=== PATIENT | male | born 1965 ===

== ENCOUNTER 2020-11-08 00:05 | Emergency (ER) | payer SELFPAY ==
[2020-11-08 04:32] VITALS: BP 134/76
[2020-11-08 05:41] LABS: Basophils % (Auto) 0.5 % (0.0-1.8); Eosinophils % (Auto) 0.6 % (0.0-4.3); Hemoglobin 14.9 gm/dl (11.8-15.2); Lymphocytes # (Auto) 2.9 K/mm3 (1.2-5.4); Lymphocytes % (Auto) 37.4 % (13.4-35.0); Mean Corpuscular HGB Conc 34 % (32-34); Mean Corpuscular Volume 99 fl (84-94); Monocytes # (Auto) 0.8 K/mm3 (0.0-0.8); Platelet Count 179 K/mm3 (140-440); Red Blood Count 4.46 M/mm3 (3.65-5.03); Red Cell Distribution Width 14.7 % (13.2-15.2)
[2020-11-08 05:56] LABS: Alanine Aminotransferase 27 units/L (7-56); Albumin 5.2 g/dL (3.9-5); BUN/Creatinine Ratio 9; Blood Urea Nitrogen 8 mg/dL (9-20); Calcium 9.6 mg/dL (8.4-10.2); Hemolysis Index 7
--- NOTE | 2020-11-08 08:23 | XRay Report ---
CHEST 2 VIEWS INDICATION / CLINICAL INFORMATION: chest palpitations. COMPARISON: None available. FINDINGS: SUPPORT DEVICES: None. HEART / MEDIASTINUM: No significant abnormality. LUNGS / PLEURA: No significant pulmonary or pleural abnormality. No pneumothorax. There is a small ca lcified granuloma in the left upper lobe. ADDITIONAL FINDINGS: No significant additional findings. IMPRESSION: 1. No acute findings. Signer Name: Joseph Robles MD Signed: 11/08/2020 8:18 AM Workstation Name: [id number]
--- NOTE | 2020-11-09 14:06 | Electrocardiograph Report ---
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
--- NOTE | 2020-11-12 22:59 | Consultation ---
DATE OF CONSULTATION: 11/08/2020 REASON FOR CONSULTATION: Advice regarding chest pain. HISTORY OF PRESENT ILLNESS: The patient is a pleasant 55-year-old gentleman who comes to the emergency room with chest pain, was at [facility] a few days ago for alcohol withdrawal, began drinking again on Friday. Denies any cold or cough-like symptoms. No fevers, chills, nausea, or vomiting. States he feels better, seen in the ICU today, initially was in AFib with RVR, is now in sinus rhythm. States he has had a [place], no history of valve issues. Currently, feels much better. States his chest pain yesterday with sharp and tight, similar with previous episodes. No leg cramping or rash. PAST MEDICAL HISTORY: Atrial fibrillation. SOCIAL HISTORY: Alcohol abuse. FAMILY HISTORY: No family history of premature heart disease. ALLERGIES: No known drug, food, or environmental allergies. INPATIENT AND OUTPATIENT MEDICATIONS: Reviewed. REVIEW OF SYSTEMS: As per HPI. PHYSICAL EXAMINATION: VITAL SIGNS: Blood pressure is 130/80. He is afebrile. Tele reveals sinus rhythm, atrial fibrillation yesterday. HEENT: Sclerae are anicteric. NECK: Supple, no masses. No JVD. CHEST: Clear to auscultation bilaterally. Good air movement. CARDIOVASCULAR: Regular rhythm, S1, S2. ABDOMEN: Soft, nontender, nondistended. Normoactive bowel sounds in 4 quadrants. No mass or bruits. EXTREMITIES: No significant edema. Good peripheral pulses. SKIN: Intact. No rashes. LABORATORY DATA: ECG reveals sinus tachycardia, heart rate of 103, nonspecific ST changes. Troponin is negative x2. Potassium is 3.4, glucose is 124. UDS is positive for benzodiazepines. Hemoglobin 13.2, hematocrit 38.4, platelets 130. IMPRESSION: In summary, the patient is a 55-year-old gentleman. 1. Alcohol withdrawal, now improved/resolved. 2. Paroxysm of atrial fibrillation with rapid ventricular response, now in sinus rhythm. 3. History of alcohol abuse. 4. Remote history of atrial fibrillation, was on Coumadin approximately 5-10 years ago. 5. Chest pain with typical and atypical features. Troponin negative x1. EKG is nonacute. At this point, the patient is clinically improved. Echocardiogram was reviewed with the patient. The patient has normal LV function with moderate mitral regurgitation. We will check a nuclear stress test in a.m., continue IV heparin. Consider changing to NOAC therapy if stress testing is unremarkable. Thank you for this consultation. We will be happy to follow along with you. TID: [id number] RECEIPT: [id number] RAFAEL/BERNADETTE
== END 2020-11-08 08:04 ==
LOC: ED 00:05
DX: R07.89 Other chest pain (principal); Z53.21 Procedure and treatment not carried out due to patient leaving prior to being seen by health care provider
CPT/HCPCS: 36415; 71046; 80053; 84484; 85025; 93005

== ENCOUNTER 2020-11-08 14:37 | Emergency (ER) | payer SELFPAY ==
--- NOTE | 2020-11-09 14:16 | Electrocardiograph Report ---
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
== END 2020-11-08 14:42 | disposition left against medical advice (07) ==
LOC: ED 14:37
DX: I48.91 Unspecified atrial fibrillation (principal); Z53.21 Procedure and treatment not carried out due to patient leaving prior to being seen by health care provider
CPT/HCPCS: 93005

== ENCOUNTER 2020-11-10 23:31 | Inpatient (IN) | payer OTHER, SELFPAY ==
[2020-11-11] MEDS ORDERED: ASPIRIN 325 MG TAB PO ONE (00:57)
--- NOTE | 2020-11-11 01:34 | XRay Report ---
CHEST 2 VIEWS INDICATION / CLINICAL INFORMATION: chestpain. FINDINGS: SUPPORT DEVICES: None. HEART / MEDIASTINUM: No significant abnormality. LUNGS / PLEURA: No significant pulmonary or pleural abnormality. No pneumothorax. ADDITIONAL FINDINGS: No significant additional findings. IMPRESSION: 1. No acute findings. Signer Name: Ernie Meraz MD Signed: 11/11/2020 1:30 AM Workstation Name: [id number]
[2020-11-11 01:43] LABS: Basophils % (Auto) 0.6 % (0.0-1.8); Eosinophils % (Auto) 0.1 % (0.0-4.3); Hematocrit 46.6 % (35.5-45.6); Lymphocytes # (Auto) 1.3 K/mm3 (1.2-5.4); Lymphocytes % (Auto) 16.6 % (13.4-35.0); Mean Corpuscular HGB Conc 34 % (32-34); Mean Corpuscular Volume 98 fl (84-94); Monocytes # (Auto) 0.6 K/mm3 (0.0-0.8); Monocytes % (Auto) 7.2 % (0.0-7.3); Platelet Count 194 K/mm3 (140-440); Red Blood Count 4.77 M/mm3 (3.65-5.03); Red Cell Distribution Width 14.5 % (13.2-15.2)
[2020-11-11] MEDS ORDERED: SODIUM CHLORIDE 0.9% 1000 ML 1,000 ML IV ONE ×2 (02:03→08:35)
[2020-11-11 02:06] LABS: Alanine Aminotransferase 26 units/L (7-56); Albumin 4.8 g/dL (3.9-5); BUN/Creatinine Ratio 15; Blood Urea Nitrogen 17 mg/dL (9-20); Calcium 8.9 mg/dL (8.4-10.2); Hemolysis Index 9
[2020-11-11] MEDS: LORazepam 2 MG TAB PO PRN (03:12)
[2020-11-11] MEDS ORDERED: METOPROLOL TARTRATE 50 MG TAB PO ONE (04:10)
--- NOTE | 2020-11-11 04:10 | Emergency Department Report ---
<ISALE RODRIGUEZ - Last Filed: 11/11/20 04:06> ED General Adult HPI - General Chief complaint: Chest Pain Stated complaint: AFIB,DEPRESSION, ETHO WITHDRAW Time Seen by Provider: 11/11/20 02:02 Source: patient, EMS Mode of arrival: Stretcher Limitations: No Limitations - History of Present Illness Initial comments: Patient is a 55-year-old male who is here with multiple complaints. Patient states he was at [place] several days ago and wants to go somewhere currently for alcohol withdrawal. Patient's last drink he states was 6 hours ago. States he feels very anxious with palpitations. States he has some mild chest discomfort. Denies shortness of breath nausea vomiting or diarrhea. States there is been no seizure hallucinations. Patient states he has not had his medications for atrial fibrillation and 3 days. Patient takes metoprolol and diltiazem. - Related Data Allergies Allergy/AdvReac Type Severity Reaction Status Date / Time No Known Allergies Allergy Verified 11/11/20 02:08 ED Review of Systems Comment: All other systems reviewed and negative ED Past Medical Hx - Past Medical History Previous Medical History?: Yes Hx Hypertension: Yes Hx Psychiatric Treatment: Yes (Anxiety, depression) Additional medical history: A-fib, alcoholism - Surgical History Past Surgical History?: Yes Hx Appendectomy: Yes Additional Surgical History: L knee, R shoulder - Social History Smoking Status: Never Smoker Substance Use Type: Alcohol ED Physical Exam - General Limitations: No Limitations General appearance: alert, in no apparent distress - Head Head exam: Present: atraumatic, normocephalic - Eye Eye exam: Present: normal appearance, PERRL, EOMI - ENT ENT exam: Present: mucous membranes moist - Neck Neck exam: Present: normal inspection - Respiratory Respiratory exam: Present: normal lung sounds bilaterally. Absent: respiratory distress, wheezes, rales, rhonchi - Cardiovascular Cardiovascular Exam: Present: normal rhythm, tachycardia, normal heart sounds. Absent: systolic murmur, diastolic murmur, rubs, gallop - GI/Abdominal GI/Abdominal exam: Present: soft, normal bowel sounds. Absent: distended, tenderness, guarding, rebound - Rectal Rectal exam: Present: deferred - Extremities Exam Extremities exam: Present: normal inspection - Back Exam Back exam: Present: normal inspection - Neurological Exam Neurological exam: Present: alert, oriented X3 - Psychiatric Psychiatric exam: Present: normal affect, normal mood - Skin Skin exam: Present: warm, dry, intact, normal color, rash (on arms, maculopapul ar) ED Course - Reevaluation(s) Reevaluation #1: 11/11/20 04:09 Patient states he felt as though he was in atrial fibrillation patient was just in sinus tachycardia. Give the patient a low-dose of metoprolol for rate control. Patient states he last drank 6 hours ago but still has significant amount of alcohol in his system. He is requesting inpatient alcohol detox. We will hold the patient until the morning for mental health evaluation to possible placement if deemed necessary ED Medical Decision Making - Lab Data Result diagrams: 11/11/20 01:09 11/11/20 01:09 Lab Results 11/11/20 11/11/20 11/11/20 Range/Units 01:09 01:09 02:08 WBC 7.9 (4.5-11.0) K/mm3 RBC 4.77 (3.65-5.03) M/mm3 Hgb 16.0 H (11.8-15.2) gm/dl Hct 46.6 H (35.5-45.6) % MCV 98 H (84-94) fl MCH 34 H (28-32) pg MCHC 34 (32-34) % RDW 14.5 (13.2-15.2) % Plt Count 194 (140-440) K/mm3 Lymph % (Auto) 16.6 (13.4-35.0) % Gove % (Auto) 7.2 (0.0-7.3) % Eos % (Auto) 0.1 (0.0-4.3) % Baso % (Auto) 0.6 (0.0-1.8) % Lymph # (Auto) 1.3 (1.2-5.4) K/mm3 Gove # (Auto) 0.6 (0.0-0.8) K/mm3 Eos # (Auto) 0.0 (0.0-0.4) K/mm3 Baso # (Auto) 0.0 (0.0-0.1) K/mm3 Seg Neutrophils % 75.5 H (40.0-70.0) % Seg Neutrophils # 6.0 (1.8-7.7) K/mm3 Sodium 138 (137-145) mmol/L Potassium 4.4 (3.6-5.0) mmol/L Chloride 97.5 L (98-107) mmol/L Carbon Dioxide 20 L (22-30) mmol/L Anion Gap 25 mmol/L BUN 17 (9-20) mg/dL Creatinine 1.1 (0.8-1.3) mg/dL Estimated GFR > 60 ml/min BUN/Creatinine Ratio 15 % Glucose 231 H (75-100) mg/dL Calcium 8.9 (8.4-10.2) mg/dL Total Bilirubin 0.70 (0.1-1.2) mg/dL AST 30 (5-40) units/L ALT 26 (7-56) units/L Alkaline Phosphatase 72 (35-129) units/L Troponin T < 0.010 (0.00-0.029) ng/mL Total Protein 7.6 (6.3-8.2) g/dL Albumin 4.8 (3.9-5) g/dL Albumin/Globulin Ratio 1.7 % Salicylates < 0.3 L (2.8-20.0) mg/dL Acetaminophen (10.0-30.0) ug/mL Plasma/Serum Alcohol (0-0.07) % 11/11/20 11/11/20 Range/Units 02:08 02:08 WBC (4.5-11.0) K/mm3 RBC (3.65-5.03) M/mm3 Hgb (11.8-15.2) gm/dl Hct (35.5-45.6) % MCV (84-94) fl MCH (28-32) pg MCHC (32-34) % RDW (13.2-15.2) % Plt Count (140-440) K/mm3 Lymph % (Auto) (13.4-35.0) % Gove % (Auto) (0.0-7.3) % Eos % (Auto) (0.0-4.3) % Baso % (Auto) (0.0-1.8) % Lymph # (Auto) (1.2-5.4) K/mm3 Gove # (Auto) (0.0-0.8) K/mm3 Eos # (Auto) (0.0-0.4) K/mm3 Baso # (Auto) (0.0-0.1) K/mm3 Seg Neutrophils % (40.0-70.0) % Seg Neutrophils # (1.8-7.7) K/mm3 Sodium (137-145) mmol/L Potassium (3.6-5.0) mmol/L Chloride (98-107) mmol/L Carbon Dioxide (22-30) mmol/L Anion Gap mmol/L BUN (9-20) mg/dL Creatinine (0.8-1.3) mg/dL Estimated GFR ml/min BUN/Creatinine Ratio % Glucose (75-100) mg/dL Calcium (8.4-10.2) mg/dL Total Bilirubin (0.1-1.2) mg/dL AST (5-40) units/L ALT (7-56) units/L Alkaline Phosphatase (35-129) units/L Troponin T (0.00-0.029) ng/mL Total Protein (6.3-8.2) g/dL Albumin (3.9-5) g/dL Albumin/Globulin Ratio % Salicylates (2.8-20.0) mg/dL Acetaminophen 5.0 L (10.0-30.0) ug/mL Plasma/Serum Alcohol 0.19 H (0-0.07) % - EKG Data -: EKG Interpreted by Ms EKG shows normal: sinus rhythm, axis, intervals, QRS complexes, ST-T waves Rate: tachycardia - Radiology Data [facility] [address] [place] [address] XRay Report Signed Patient: CHRISTIANNE WOODS MR#: [id number] : 1965 Acct:[id number] Age/Sex: 55 / M ADM Date: 11/10/20 Loc: ED Attending Dr: Ordering Physician: ED MD HARIS Date of Service: 11/11/20 Procedure(s): XR chest routine 2V Accession Number(s): [id number] cc: ED MD HARIS Fluoro Time In Minutes: CHEST 2 VIEWS INDICATION / CLINICAL INFORMATION: chestpain. FINDINGS: SUPPORT DEVICES: None. HEART / MEDIASTINUM: No significant abnormality. LUNGS / PLEURA: No significant pulmonary or pleural abnormality. No pneumothorax. ADDITIONAL FINDINGS: No significant additional findings. IMPRESSION: 1. No acute findings. Signer Name: Ernie Meraz MD Signed: 11/11/2020 1:30 AM Workstation Name: [id number] ED Disposition Clinical Impression: Atrial fibrillation with RVR, Palpitations Alcohol withdrawal Qualifiers: Complication of substance-induced condition: with unspecified complication Qualified Code(s): F10.239 - Alcohol dependence with withdrawal, unspecified Disposition: DC-09 OP ADMIT IP TO THIS HOSP Condition: Serious <MEHDI HOOVER S - Last Filed: 11/11/20 09:29> ED Review of Systems ROS: Stated complaint: AFIB,DEPRESSION, ETHO WITHDRAW Other details as noted in HPI ED Physical Exam - Other Other exam information: 11/11/2020 8 AM: GENERAL: The patient is well-developed well-nourished. He appears very anxious. HENT: Normocephalic. Atraumatic. Patient has moist mucous membranes. EYES: Extraocular motions are intact. NECK: Supple. Trachea is midline. CHEST/LUNGS: Clear to auscultation. There is no respiratory distress noted. HEART/CARDIOVASCULAR: Irregular with severe tachycardia. There is no murmur. ABDOMEN: Abdomen is soft, nontender. Patient has normal bowel sounds. SKIN: Skin is warm and dry. NEURO: The patient is awake, alert, and oriented. The patient is cooperative. Normal speech. MUSCULOSKELETAL: There is no tenderness or deformity. There is no limitation range of motion. ED Course Vital Signs 11/11/20 11/11/20 11/11/20 00:52 02:49 03:00 Temperature 97.9 F Pulse Rate 112 H 176 H 106 H Respiratory 16 19 22 Rate Blood Pressure 128/85 111/74 Blood Pressure [Left] O2 Sat by Pulse 98 Oximetry 11/11/20 11/11/20 11/11/20 03:15 03:31 03:45 Temperature Pulse Rate 104 H 102 H 108 H Respiratory 19 16 22 Rate Blood Pressure 111/74 125/79 125/79 Blood Pressure [Left] O2 Sat by Pulse Oximetry 11/11/20 11/11/20 11/11/20 04:01 04:15 04:31 Temperature Pulse Rate 134 H 104 H 100 H Respiratory 30 H 17 21 Rate Blood Pressure 131/81 125/79 119/74 Blood Pressure [Left] O2 Sat by Pulse Oximetry 11/11/20 11/11/20 11/11/20 04:45 05:01 05:15 Temperature Pulse Rate 98 H 97 H 92 H Respiratory 19 19 20 Rate Blood Pressure 119/74 106/60 106/60 Blood Pressure [Left] O2 Sat by Pulse Oximetry 11/11/20 11/11/20 11/11/20 05:31 05:45 06:01 Temperature Pulse Rate 93 H 94 H 92 H Respiratory 22 18 20 Rate Blood Pressure 108/67 108/67 106/63 Blood Pressure [Left] O2 Sat by Pulse Oximetry 11/11/20 11/11/20 11/11/20 06:15 07:20 08:30 Temperature Pulse Rate 93 H 100 H 160 H Respiratory 22 18 24 Rate Blood Pressure 106/63 Blood Pressure 104/66 102/80 [Left] O2 Sat by Pulse 96 96 Oximetry 11/11/20 11/11/20 08:54 09:11 Temperature Pulse Rate 164 H 158 H Respiratory 18 Rate Blood Pressure 106/58 Blood Pressure 122/70 [Left] O2 Sat by Pulse 96 Oximetry - Consultations Consultation #1: 11/11/20 08:47 This patient was signed out to me by the overnight physician, Dr. Rodriguez. I went to reevaluate the patient and noticed his heart rate was irregular and going in between 150 and 180 bpm. The patient has a history of atrial fibrillation and has been out of his medication for the past few days. He is not anticoagulated. However, part of the patient's issue is that he is having alcohol withdrawal. I noticed that the patient had a very fast heart rate earlier in the evening and responded to a dose of metoprolol and 4 mg of Ativan on the CIWA protocol. Patient has been given a 10 mg dose of Cardizem with only some mild improvement of the heart rate. He will receive more Ativan as per the CIWA protocol. The patient will be a medical admission and was accepted for admission by Dr. William. ED Medical Decision Making - Lab Data Result diagrams: 11/11/20 01:09 11/11/20 01:09 - EKG Data 11/11/20 09:25 Repeat EKG at 8:44 AM was interpreted by me. Atrial fibrillation with a rate of 155 bpm, normal axis, normal QRS, QT and QTc intervals. No ST elevation SC. - Medical Decision Making I went in to reevaluate the patient regarding his chest pain work-up and alcohol withdrawal. He was found to have a heart rate varying between 150 to 180 bpm and it appeared irregular. I then noticed that the patient has a history of atrial fibrillation. EKG confirms atrial fibrillation with RVR. No morphology consistent with ST elevation myocardial infarction. The patient has not been anticoagulated for many years and has been out of his atrial fibrillation medications, which I assume are chronotropic meds, for a few days. The patient feels that the Ativan had worn off from the CIWA protocol and that is what made his heart rate elevated again. Initially the patient was given a 10 mg dose of Cardizem with some slight improvement of the heart rate without chemical c ardioversion. The patient was then given 4 mg of Ativan as per the CIWA protocol without any change in the heart rate. The patient will be given another IV Cardizem bolus followed by a Cardizem drip. He will be placed on heparin. The patient will be admitted to the ICU and was accepted by the spitalist service and Dr. William. Critical Care Time: Yes Critical care time in (mins) excluding proc time.: 31 Critical care attestation.: If time is entered above; I have spent that time in minutes in the direct care of this critically ill patient, excluding procedure time. Critical care time was spent on this patient in doing multiple reevaluations, EKG interpretation for the atrial fibrillation, IV Cardizem bolus and drip, IV Ativan as per the CIWA protocol, IV heparin bolus and drip, multiple discussions with the patient and discussion with the hospitalist service. Critical Care Time: 31 minutes ED Disposition Is pt being admited?: Yes Time of Disposition: 09:12
[2020-11-11] MEDS ORDERED: THIAMINE 100 MG, FOLIC ACID 1 MG, MULTIPLE VITAMIN INJ, ADULT 10 ML in SODIUM CHLORIDE ... IV ONE (08:31)
[2020-11-11] MEDS ORDERED: dilTIAZem 25 MG/5 ML INJ IV ONE ×2 (08:35→09:09)
[2020-11-11] MEDS: LORazepam 2 MG/ML VIAL IV PRN ×4 (08:55→20:44)
[2020-11-11] MEDS ORDERED: HEPARIN 10,000 UNITS/10 ML VIAL IV ONE (09:13)
[2020-11-11] MEDS ORDERED: dilTIAZem/D5W 100 MG/100 ML BAG IV ONE (09:14)
[2020-11-11] MEDS: dilTIAZem/D5W 100 MG/100 ML BAG IV SCH ×2 (09:41→16:47)
[2020-11-11] MEDS ORDERED: HEPARIN 10,000 UNITS/10 ML VIAL IV PRN (09:43)
[2020-11-11 10:11] LABS: Bacteria,Urine 1+ /HPF (Negative); Bilirubin,Urine NEG (Negative); Blood,Urine SM (Negative); Color,Urine Yellow (Yellow); Hyaline Casts,Urine 1 /LPF; Mucus,Urine 1+ /HPF; WBC,Urine < 1.0 /HPF (0.0-6.0)
[2020-11-11 10:14] LABS: Amphetamine Screen,Urine Negative; Cannabinoid Screen,Urine Negative; Cocaine Screen,Urine Negative; Methadone Screen,Urine Negative; Opiate Screen,Urine Negative
--- NOTE | 2020-11-11 10:15 | History and Physical Report ---
History of Present Illness Date of examination: 11/11/20 Date of admission: 11/11/2020 Chief complaint: Chest pain History of present illness: 55-year-old male who presents through the emergency department with chief complaint of chest pain. Patient reported that he was at [place] a few days ago for alcohol withdrawal. Patient states that he began drinking again on Friday approximately fifth of alcohol or more daily. He states that his last drink was approximately 6 hours ago. Patient reports feeling anxious and palpitations. Patient denies any cough or cold-like symptoms. No fever chills. No headache or visual disturbances. Patient describes his chest pain as a burning sensation in the middle of his chest with no associated shortness of breath. No diaphoresis, nausea or vomiting. Patient was noted on telemetry to have A. fib with RVR. Patient reports last time he was in atrial fibrillation was approximately 10 years ago. Patient reports that he has been on Cardizem 240 mg daily and metoprolol 50 mg twice daily. Patient reports medical noncompliance. Past History Past Medical History: atrial fib Past Surgical History: No surgical history Social history: alcohol abuse Family history: no significant family history Medications and Allergies Allergies Allergy/AdvReac Type Severity Reaction Status Date / Time No Known Allergies Allergy Verified 11/11/20 02:08 Active Meds: Active Medications Heparin Sodium (Porcine) (Heparin 10,000 Units/10 Ml Vial) 3,600 unit 40 unit/kg (3600 unit) IV Q6H PRN PRN Reason: Anti-Xa Assay<0.1 units/ml Thiamine HCl 100 mg/ Folic Acid 1 mg/ Multivitamins/Minerals 10 ml/ Sodium Chloride 1,011.2 mls @ 250 mls/hr IV ONCE ONE Stop: 11/11/20 12:33 Last Admin: 11/11/20 08:57 Dose: Not Given Documented by: Diltiazem HCl (Cardizem/D5w 100mg/100ml) 100 mg in 100 mls @ 5 mls/hr IV TITR JASON; Protocol Last Admin: 11/11/20 09:41 Dose: 5 mg/hr, 5 mls/hr Documented by: Heparin Sodium/Sodium Chloride (Heparin/ 0.45% Nacl-25,000 Unit/500 Ml) 25,000 unit in 500 mls @ 27 mls/hr IV TITR JASON; Protocol Lorazepam (Lorazepam 2 Mg Tab) 2 mg PO Q1HR PRN PRN Reason: CIWA-Ar 8-15 Lorazepam (Lorazepam 2 Mg Tab) 4 mg PO Q1HR PRN PRN Reason: CIWA-Ar 16-25 Last Admin: 11/11/20 03:12 Dose: 4 mg Documented by: Lorazepam (Lorazepam 2 Mg/Ml Vial) 4 mg IV Q15MIN PRN PRN Reason: CIWA-Ar >25 Last Admin: 11/11/20 08:55 Dose: 4 mg Documented by: Review of Systems All systems: negative Exam - Constitutional Vitals: Temp Pulse Resp BP Pulse Ox 97.9 F 144 H 14 110/86 97 11/11/20 00:52 11/11/20 09:41 11/11/20 09:31 11/11/20 09:41 11/11/20 09:31 General appearance: Present: no acute distress, well-nourished - EENT Eyes: Present: PERRL ENT: hearing intact, clear oral mucosa - Neck Neck: Present: supple, normal ROM - Respiratory Respiratory effort: normal Respiratory: bilateral: CTA - Cardiovascular Rhythm: irregularly irregular Heart Sounds: Present: systolic murmur. Absent: rub, click - Extremities Extremities: pulses symmetrical, No edema Peripheral Pulses: within normal limits - Abdominal General gastrointestinal: Present: soft, non-tender, non-distended, normal bowel sounds Male genitourinary: Present: normal - Integumentary Integumentary: Present: clear, warm, dry - Musculoskeletal Musculoskeletal: gait normal, strength equal bilaterally - Psychiatric Psychiatric: appropriate mood/affect, intact judgment & insight - Neurologic Neurologic: CNII-XII intact, moves all extremities HEART Score - HEART Score Troponin: Troponin T < 0.010 ng/mL (0.00-0.029) 11/11/20 07:10 Results - Labs CBC & Chem 7: 11/11/20 01:09 11/11/20 01:09 Labs: Laboratory Last Values WBC 7.9 K/mm3 (4.5-11.0) 11/11/20 01:09 RBC 4.77 M/mm3 (3.65-5.03) 11/11/20 01:09 Hgb 16.0 gm/dl (11.8-15.2) H 11/11/20 01:09 Hct 46.6 % (35.5-45.6) H 11/11/20 01:09 MCV 98 fl (84-94) H 11/11/20 01:09 MCH 34 pg (28-32) H 11/11/20 01:09 MCHC 34 % (32-34) 11/11/20 01:09 RDW 14.5 % (13.2-15.2) 11/11/20 01:09 Plt Count 194 K/mm3 (140-440) 11/11/20 01:09 Lymph % (Auto) 16.6 % (13.4-35.0) 11/11/20 01:09 [place] % (Auto) 7.2 % (0.0-7.3) 11/11/20 01:09 Eos % (Auto) 0.1 % (0.0-4.3) 11/11/20 01:09 Baso % (Auto) 0.6 % (0.0-1.8) 11/11/20 01:09 Lymph # (Auto) 1.3 K/mm3 (1.2-5.4) 11/11/20 01:09 [place] # (Auto) 0.6 K/mm3 (0.0-0.8) 11/11/20 01:09 Eos # (Auto) 0.0 K/mm3 (0.0-0.4) 11/11/20 01:09 Baso # (Auto) 0.0 K/mm3 (0.0-0.1) 11/11/20 01:09 Seg Neutrophils % 75.5 % (40.0-70.0) H 11/11/20 01:09 Seg Neutrophils # 6.0 K/mm3 (1.8-7.7) 11/11/20 01:09 Sodium 138 mmol/L (137-145) 11/11/20 01:09 Potassium 4.4 mmol/L (3.6-5.0) 11/11/20 01:09 Chloride 97.5 mmol/L (98-107) L 11/11/20 01:09 Carbon Dioxide 20 mmol/L (22-30) L 11/11/20 01:09 Anion Gap 25 mmol/L 11/11/20 01:09 BUN 17 mg/dL (9-20) 11/11/20 01:09 Creatinine 1.1 mg/dL (0.8-1.3) 11/11/20 01:09 Estimated GFR > 60 ml/min 11/11/20 01:09 BUN/Creatinine Ratio 15 % 11/11/20 01:09 Glucose 231 mg/dL (75-100) H 11/11/20 01:09 Calcium 8.9 mg/dL (8.4-10.2) 11/11/20 01:09 Total Bilirubin 0.70 mg/dL (0.1-1.2) 11/11/20 01:09 AST 30 units/L (5-40) 11/11/20 01:09 ALT 26 units/L (7-56) 11/11/20 01:09 Alkaline Phosphatase 72 units/L (35-129) 11/11/20 01:09 Troponin T < 0.010 ng/mL (0.00-0.029) 11/11/20 07:10 Total Protein 7.6 g/dL (6.3-8.2) 11/11/20 01:09 Albumin 4.8 g/dL (3.9-5) 11/11/20 01:09 Albumin/Globulin Ratio 1.7 % 11/11/20 01:09 Salicylates < 0.3 mg/dL (2.8-20.0) L 11/11/20 02:08 Acetaminophen 5.0 ug/mL (10.0-30.0) L 11/11/20 02:08 Plasma/Serum Alcohol 0.19 % (0-0.07) H 11/11/20 02:08 Assessment and Plan Assessment and plan: Chest pain. Atrial fibrillation with RVR EtOH abuse. 11/11/2020. Patient will be admitted with the above diagnosis and placed on the chest pain protocol. Will consult cardiology for further evaluation. Trend cardiac isoenzymes and follow-up serial EKGs. Given the atrial fibrillation, we will start on IV heparin for now. Continue Cardizem drip and transition to patient's home medications of Cardizem 240 mg daily and metoprolol 50 mg twice daily. Patient will be admitted to [facility] given the Cardizem drip. Patient will be placed on CIWA protocol for the EtOH abuse.
[2020-11-11 10:32] LABS: Benzodiazepines Screen,Urine Positive
[2020-11-11] MEDS: HEPARIN/ 0.45% NACL DRIP 25,000 UNIT/500 ML BAG IV SCH (12:02)
[2020-11-11 13:15] LABS: Hematocrit 40.2 % (35.5-45.6); Hemoglobin 13.8 gm/dl (11.8-15.2)
[2020-11-11] MEDS ORDERED: METOPROLOL TARTRATE 50 MG TAB ONE (14:34)
[2020-11-11] MEDS: METOPROLOL TARTRATE 50 MG TAB PO SCH (21:11)
[2020-11-12 02:42] LABS: Basophils # (Auto) 0.1 K/mm3 (0.0-0.1); Basophils % (Auto) 1.1 % (0.0-1.8); Eosinophils # (Auto) 0.1 K/mm3 (0.0-0.4); Eosinophils % (Auto) 1.6 % (0.0-4.3); Hematocrit 38.4 % (35.5-45.6); Hemoglobin 13.2 gm/dl (11.8-15.2); Lymphocytes # (Auto) 1.9 K/mm3 (1.2-5.4); Lymphocytes % (Auto) 37.6 % (13.4-35.0); Mean Corpuscular HGB Conc 34 % (32-34); Mean Corpuscular Volume 98 fl (84-94); Monocytes # (Auto) 0.4 K/mm3 (0.0-0.8); Platelet Count 130 K/mm3 (140-440); Red Blood Count 3.92 M/mm3 (3.65-5.03); Red Cell Distribution Width 14.8 % (13.2-15.2)
[2020-11-12 02:58] LABS: Blood Urea Nitrogen 11 mg/dL (9-20); Calcium 8.2 mg/dL (8.4-10.2); Hemolysis Index 4
[2020-11-12 03:00] LABS: BUN/Creatinine Ratio 18
[2020-11-12] MEDS: HEPARIN/ 0.45% NACL DRIP 25,000 UNIT/500 ML BAG IV SCH ×2 (08:51→20:13)
[2020-11-12] MEDS: LORazepam 2 MG TAB PO PRN ×5 (08:52→17:22)
[2020-11-12] MEDS: ASPIRIN EC 325 MG TAB PO SCH (09:29)
[2020-11-12] MEDS: METOPROLOL TARTRATE 50 MG TAB PO SCH ×2 (09:30→20:14)
--- NOTE | 2020-11-12 09:30 | Progress Note ---
Assessment and Plan Assessment and plan: Chest pain. Atrial fibrillation with RVR EtOH abuse. 11/11/2020. Patient will be admitted with the above diagnosis and placed on the chest pain protocol. Will consult cardiology for further evaluation. Trend cardiac isoenzymes and follow-up serial EKGs. Given the atrial fibrillation, we will start on IV heparin for now. Continue Cardizem drip and transition to patient's home medications of Cardizem 240 mg daily and metoprolol 50 mg twice daily. Patient will be admitted to [facility] given the Cardizem drip. Patient will be placed on CIWA protocol for the EtOH abuse. 11/12/2020. Await cardiology evaluation. Cardiac isoenzymes are negative. EKG unremarkable. Patient is back in normal sinus rhythm. Patient will be transferred to telemetry. Continue metoprolol at home medication of 240 mg Cardizem. Continue IV heparin for anticoagulation. Continue CIWA protocol. Ischemic evaluation per cardiology recommendations. History Interval history: No new issues overnight. Hospitalist Physical - Constitutional Vitals: Temp Pulse Resp BP Pulse Ox 98.2 F 67 18 104/74 95 11/12/20 07:19 11/12/20 04:00 11/11/20 23:25 11/12/20 00:40 11/11/20 17:00 General appearance: Present: no acute distress, well-nourished - EENT Eyes: Present: PERRL, EOM intact ENT: hearing intact, clear oral mucosa, dentition normal - Neck Neck: Present: supple, normal ROM - Respiratory Respiratory effort: normal Respiratory: bilateral: CTA - Cardiovascular Rhythm: regular Heart Sounds: Present: S1 & S2. Absent: gallop, rub - Extremities Extremities: no ischemia, No edema, Full ROM - Abdominal General gastrointestinal: soft, non-tender, non-distended, normal bowel sounds - Integumentary Integumentary: Present: clear, warm, dry - Neurologic Neurologic: CNII-XII intact, moves all extremities HEART Score - HEART Score Troponin: Troponin T < 0.010 ng/mL (0.00-0.029) 11/11/20 16:09 Results - Labs CBC & Chem 7: 11/12/20 02:11 11/12/20 02:11 Labs: Laboratory Last Values WBC 5.0 K/mm3 (4.5-11.0) 11/12/20 02:11 RBC 3.92 M/mm3 (3.65-5.03) 11/12/20 02:11 Hgb 13.2 gm/dl (11.8-15.2) 11/12/20 02:11 Hct 38.4 % (35.5-45.6) 11/12/20 02:11 MCV 98 fl (84-94) H 11/12/20 02:11 MCH 34 pg (28-32) H 11/12/20 02:11 MCHC 34 % (32-34) 11/12/20 02:11 RDW 14.8 % (13.2-15.2) 11/12/20 02:11 Plt Count 130 K/mm3 (140-440) L 11/12/20 02:11 Lymph % (Auto) 37.6 % (13.4-35.0) H 11/12/20 02:11 [place] % (Auto) 8.0 % (0.0-7.3) H 11/12/20 02:11 Eos % (Auto) 1.6 % (0.0-4.3) 11/12/20 02:11 Baso % (Auto) 1.1 % (0.0-1.8) 11/12/20 02:11 Lymph # (Auto) 1.9 K/mm3 (1.2-5.4) 11/12/20 02:11 [place] # (Auto) 0.4 K/mm3 (0.0-0.8) 11/12/20 02:11 Eos # (Auto) 0.1 K/mm3 (0.0-0.4) 11/12/20 02:11 Baso # (Auto) 0.1 K/mm3 (0.0-0.1) 11/12/20 02:11 Seg Neutrophils % 51.7 % (40.0-70.0) 11/12/20 02:11 Seg Neutrophils # 2.6 K/mm3 (1.8-7.7) 11/12/20 02:11 Heparin Anti-Xa Level 0.16 U.I./ml (0.3-0.7) L 11/12/20 02:11 Sodium 138 mmol/L (137-145) 11/12/20 02:11 Potassium 3.4 mmol/L (3.6-5.0) L D 06/27/21 02:11 Chloride 105.7 mmol/L (98-107) 11/12/20 02:11 Carbon Dioxide 23 mmol/L (22-30) 11/12/20 02:11 Anion Gap 13 mmol/L 11/12/20 02:11 BUN 11 mg/dL (9-20) 11/12/20 02:11 Creatinine 0.6 mg/dL (0.8-1.3) L 11/12/20 02:11 Estimated GFR > 60 ml/min 11/12/20 02:11 BUN/Creatinine Ratio 18 % 11/12/20 02:11 Glucose 124 mg/dL (75-100) H 11/12/20 02:11 Calcium 8.2 mg/dL (8.4-10.2) L 11/12/20 02:11 Magnesium 1.90 mg/dL (1.7-2.3) 11/11/20 12:59 Total Bilirubin 0.70 mg/dL (0.1-1.2) 11/11/20 01:09 AST 30 units/L (5-40) 11/11/20 01:09 ALT 26 units/L (7-56) 11/11/20 01:09 Alkaline Phosphatase 72 units/L (35-129) 11/11/20 01:09 Troponin T < 0.010 ng/mL (0.00-0.029) 11/11/20 16:09 Total Protein 7.6 g/dL (6.3-8.2) 11/11/20 01:09 Albumin 4.8 g/dL (3.9-5) 11/11/20 01:09 Albumin/Globulin Ratio 1.7 % 11/11/20 01:09 Urine Color Yellow (Yellow) 11/11/20 Unknown Urine Turbidity Clear (Clear) 11/11/20 Unknown Urine pH 5.0 (5.0-7.0) 11/11/20 Unknown Ur Specific [place] 1.025 (1.003-1.030) 11/11/20 Unknown Urine Protein 100 mg/dl mg/dL (Negative) 11/11/20 Unknown Urine Glucose (UA) 50 mg/dL (Negative) 11/11/20 Unknown Urine Ketones Tr mg/dL (Negative) 11/11/20 Unknown Urine Blood Sm (Negative) 11/11/20 Unknown Urine Nitrite Neg (Negative) 11/11/20 Unknown Urine Bilirubin Neg (Negative) 11/11/20 Unknown Urine Urobilinogen 2.0 mg/dL (<2.0) 11/11/20 Unknown Ur Leukocyte Esterase Neg (Negative) 11/11/20 Unknown Urine WBC (Auto) < 1.0 /HPF (0.0-6.0) 11/11/20 Unknown Urine RBC (Auto) 4.0 /HPF (0.0-6.0) 11/11/20 Unknown Urine Bacteria (Auto) 1+ /HPF (Negative) 11/11/20 Unknown Hyaline Casts 1 /LPF 11/11/20 Unknown Urine Mucus 1+ /HPF 11/11/20 Unknown Salicylates < 0.3 mg/dL (2.8-20.0) L 11/11/20 02:08 Urine Opiates Screen Negative 11/11/20 Unknown Urine Methadone Screen Negative 11/11/20 Unknown Acetaminophen 5.0 ug/mL (10.0-30.0) L 11/11/20 02:08 Ur Barbiturates Screen Negative 11/11/20 Unknown Ur Phencyclidine Scrn Negative 11/11/20 Unknown Ur Amphetamines Screen Negative 11/11/20 Unknown U Benzodiazepines Scrn Positive 11/11/20 Unknown Urine Cocaine Screen Negative 11/11/20 Unknown U Marijuana (THC) Screen Negative 11/11/20 Unknown Drugs of Abuse Note Disclamer 11/11/20 Unknown Plasma/Serum Alcohol 0.19 % (0-0.07) H 11/11/20 02:08 [place]/IV: Voiding Method Urinal Active Medications - Current Medications Current Medications: Generic Name Dose Route Start Last Admin Trade Name Freq PRN Reason Stop Dose Admin Aspirin 325 mg 11/12/20 10:00 Aspirin Ec 325 Mg Tab PO QDAY JASON Heparin Sodium (Porcine) 3,600 unit 11/11/20 09:43 Heparin 10,000 Units/10 Ml Vial 40 unit/kg (3600 unit) IV Q6H PRN Anti-Xa Assay<0.1 units/ml Diltiazem HCl 100 mg in 100 mls @ 5 mls/hr 11/11/20 10:00 11/11/20 23:25 Cardizem/D5w 100mg/100ml IV 0 mg/hr TITR JASON 0 mls/hr Titration Protocol 5 MG/HR Heparin Sodium/Sodium Chloride 25,000 unit in 500 mls @ 27 mls/hr 11/11/20 10:00 11/12/20 08:51 Heparin/ 0.45% Nacl-25,000 Unit/500 Ml IV 1,550 units/hr TITR JASON 31 mls/hr Administration Protocol 1,350 UNITS/HR Lorazepam 2 mg 11/11/20 02:04 11/12/20 08:52 Lorazepam 2 Mg Tab PO 2 mg Q1HR PRN Administration CIWA-Ar 8-15 Lorazepam 4 mg 11/11/20 02:04 11/11/20 03:12 Lorazepam 2 Mg Tab PO 4 mg Q1HR PRN Administration CIWA-Ar 16-25 Lorazepam 4 mg 11/11/20 02:04 11/11/20 20:44 Lorazepam 2 Mg/Ml Vial IV 4 mg Q15MIN PRN Administration CIWA-Ar >25 Metoprolol Tartrate 50 mg 11/11/20 22:00 11/11/20 21:11 Metoprolol Tartrate 50 Mg Tab PO 50 mg BID JASON Administration Sodium Chloride 10 ml 11/11/20 22:00 11/11/20 21:12 Sodium Chloride 0.9% 10 Ml Flush Syringe IV 10 ml BID JASON Administration Sodium Chloride 10 ml 11/11/20 10:15 Sodium Chloride 0.9% 10 Ml Flush Syringe IV PRN PRN LINE FLUSH
[2020-11-12] MEDS: dilTIAZem CD 240 MG CAP PO SCH (11:54)
--- NOTE | 2020-11-12 12:12 | Event Note ---
Full consultation dictated. Thank you.
--- NOTE | 2020-11-12 13:13 | Electrocardiograph Report ---
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
--- NOTE | 2020-11-12 13:15 | Electrocardiograph Report ---
[facility] Test Date: 2020-11-11 Test Time: 08:44:28 Pat Name: CHRISTIANNE WOODS Department: Room: A259 Gender: M Screen Maker: RONNY : 1965 Requested By: ISAEL ADORNO Order Number: [id number] Reading MD: Chintan Larkin Measurements Intervals [place] Rate: 155 P: MS: QRS: 40 QRSD: 70 T: 268 QT: 267 QTc: 430 Interpretive Statements Atrial fibrillation Nonspecific repol abnormality, diffuse leads Compared to ECG 11/08/2020 14:46:54 Early repolarization now present Sinus rhythm no longer present Electronically Signed On 11-12-2020 13:15:33 EDT by Chintan Larkin
--- NOTE | 2020-11-12 13:24 | Electrocardiograph Report ---
[facility] Test Date: 2020-11-12 Test Time: 10:59:05 Pat Name: CHRISTIANNE WOODS Department: Room: A259 1 Gender: M Acute Care Certified Nursing Assistant: JONNIE : 1965 Requested By: DORA ALBA Order Number: [id number] Reading MD: Chintan Larkin Measurements Intervals [place] Rate: 78 P: 47 WI: 138 QRS: 25 QRSD: 86 T: 11 QT: 401 QTc: 458 Interpretive Statements Sinus rhythm Compared to ECG 11/11/2020 08:44:28 Atrial fibrillation no longer present Early repolarization no longer present Electronically Signed On 11-12-2020 13:24:00 EDT by Chintan Larkin
--- NOTE | 2020-11-12 14:09 | Consultation ---
History of Present Illness - Reason for Consult Consult date: 11/12/20 Reason for consult: Alcohol Use - Chief Complaint Chief complaint: Chest pain - History of Present Psychiatric Illness Per Hospitalist Note: 55-year-old male who presents through the emergency department with chief complaint of chest pain. Patient reported that he was at [facility] a few days ago for alcohol withdrawal. Patient states that he began drinking again on Friday approximately fifth of alcohol or more daily. He states that his last drink was approximately 6 hours ago. Patient reports feeling anxious and palpitations. Patient denies any cough or cold-like symptoms. No fever chills. No headache or visual disturbances. Patient describes his chest pain as a burning sensation in the middle of his chest with no associated shortness of breath. No diaphoresis, nausea or vomiting. Patient was noted on telemetry to have A. fib with RVR. Patient reports last time he was in atrial fibrillation was approximately 10 years ago. Patient reports that he has been on Cardizem 240 mg daily and metoprolol 50 mg twice daily. Patient reports medical noncompliance. The patient is a 55 year old male with a history of Alcohol use disorder and Depression who presented via the Ed for chest pain. During my interview with the patient he reports that he started drinking at the age of 16 and states longest sobriety period as 1 year. Patient reports stressors as " I lost everything, I lost my job and my family; I can't seem to get a break from people." He states ' I drink because of depression and guilt." He presents with moderate tremors. He denies any cravings for alcohol at this time. Patient denies suicidal/homicidal ideation and denies hallucinations. PAST PSYCHIATRIC HISTORY Diagnoses: Depression, Alcohol use Disorder Suicide attempts or Self-harm behavior: Denies Prior psychiatric hospitalizations: Multiple Substance Abuse history: Alcohol Previous psychiatric medications tried: Zoloft, Paxil, Prozac,and Remeron Outpatient treatment: unknown SOCIAL HISTORY Marital Status: Single Living Arrangements: Homeless Employment Status: unemployed Access to guns/weapons: Denied Education: Bachelors History of Abuse: Denied Legal History: None reported REVIEW OF SYSTEMS Constitutional: Negative for weight loss ENT: Negative for stridor Respiratory: Negative for cough or hemoptysis MENTAL STATUS EXAMINATION General Appearance and Behavior: Age appropriate, dressed appropriately, calm and cooperative Cooperation: Cooperative Psychomotor Behavior: psychomotor normal Mood: OK Affect and affective range: Congruent with stated mood Thought Process: goal directed Thought Content:Within reality Speech: Normal volume and regular rate and rhythm Intellectual Functioning: Average Suicidal Ideation: Denied Homicidal Ideation: Denied Hallucinations: Denied Delusions: None elicited Impulse Control: Intact Insight and Judgment: Limited insight and judgment, Memory: Normal Attention: destractible Orientation: Alert, oriented Assessment and Plan (1) Alcohol Use disorder, Severe- F10.20 RECOMMENDATIONS Risks, benefits and alternatives of medications discussed with the patient, questions answered and consent obtained from patient. PSYCHOTHERAPY: Supportive psychotherapy provided MEDICAL: Per primary team DELIRIUM PRECAUTIONS: Please re-orient patient frequently, keep lights on during the day, and minimize benzodiazepines and opiates as these medications could worsen patient's confusion. 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 FOLLOW-UP: Will follow Thank you for the consult. Please contact with any questions and/or concerns. Medications and Allergies Allergies Allergy/AdvReac Type Severity Reaction Status Date / Time No Known Allergies Allergy Verified 11/11/20 02:08 Home Medications Medication Instructions Recorded Confirmed Last Taken Type Metoprolol [Lopressor TAB] 50 mg PO BID 11/12/20 11/12/20 11/12/20 09:30 History dilTIAZem CD [Cardizem Cd] 240 mg PO QDAY 11/12/20 11/12/20 11/12/20 History Active Meds: Active Medications Aspirin (Aspirin Ec 325 Mg Tab) 325 mg PO QDAY [facility] Last Admin: 11/12/20 09:29 Dose: 325 mg Documented by: Diltiazem HCl (Diltiazem Cd 240 Mg Cap) 240 mg PO QDAY [facility] Last Admin: 11/12/20 11:54 Dose: 240 mg Documented by: Heparin Sodium (Porcine) (Heparin 10,000 Units/10 Ml Vial) 3,600 unit 40 unit/kg (3600 unit) IV Q6H PRN PRN Reason: Anti-Xa Assay<0.1 units/ml Diltiazem HCl (Cardizem/D5w 100mg/100ml) 100 mg in 100 mls @ 5 mls/hr IV TITR [facility]; Protocol Last Titration: 11/11/20 23:25 Dose: 0 mg/hr, 0 mls/hr Documented by: Heparin Sodium/Sodium Chloride (Heparin/ 0.45% Nacl-25,000 Unit/500 Ml) 25,000 unit in 500 mls @ 27 mls/hr IV TITR JASON; Protocol Last Titration: 11/12/20 11:40 Dose: 1,550 units/hr, 31 mls/hr Documented by: Lorazepam (Lorazepam 2 Mg Tab) 2 mg PO Q1HR PRN PRN Reason: CIWA-Ar 8-15 Last Admin: 11/12/20 12:20 Dose: 2 mg Documented by: Lorazepam (Lorazepam 2 Mg Tab) 4 mg PO Q1HR PRN PRN Reason: CIWA-Ar 16-25 Last Admin: 11/11/20 03:12 Dose: 4 mg Documented by: Lorazepam (Lorazepam 2 Mg/Ml Vial) 4 mg IV Q15MIN PRN PRN Reason: CIWA-Ar >25 Last Admin: 11/11/20 20:44 Dose: 4 mg Documented by: Metoprolol Tartrate (Metoprolol Tartrate 50 Mg Tab) 50 mg PO BID [facility] Last Admin: 11/12/20 09:30 Dose: 50 mg Documented by: Sodium Chloride (Sodium Chloride 0.9% 10 Ml Flush Syringe) 10 ml IV BID [facility] Last Admin: 11/12/20 09:32 Dose: 10 ml Documented by: Sodium Chloride (Sodium Chloride 0.9% 10 Ml Flush Syringe) 10 ml IV PRN PRN PRN Reason: LINE FLUSH Mental Status Exam - Vital signs Last Vital Signs Temp 98.4 F 11/12/20 11:46 Pulse 81 11/12/20 12:00 Resp 18 11/12/20 12:00 BP 130/83 11/12/20 11:54 Pulse Ox 97 11/12/20 12:00 Results Result Diagrams: 11/12/20 02:11 11/12/20 02:11 Abnormal lab results 11/11/20 11/12/20 11/12/20 Range/Units 17:35 02:11 02:11 MCV 98 H (84-94) fl MCH 34 H (28-32) pg Plt Count 130 L (140-440) K/mm3 Lymph % (Auto) 37.6 H (13.4-35.0) % [place] % (Auto) 8.0 H (0.0-7.3) % Heparin Anti-Xa Level 0.24 L (0.3-0.7) U.I./ml Potassium 3.4 L D (3.6-5.0) mmol/L Creatinine 0.6 L (0.8-1.3) mg/dL Glucose 124 H (75-100) mg/dL Calcium 8.2 L (8.4-10.2) mg/dL 11/12/20 Range/Units 02:11 MCV (84-94) fl MCH (28-32) pg Plt Count (140-440) K/mm3 Lymph % (Auto) (13.4-35.0) % [place] % (Auto) (0.0-7.3) % Heparin Anti-Xa Level 0.16 L (0.3-0.7) U.I./ml Potassium (3.6-5.0) mmol/L Creatinine (0.8-1.3) mg/dL Glucose (75-100) mg/dL Calcium (8.4-10.2) mg/dL All other labs normal.
--- NOTE | 2020-11-12 16:35 | Consultation ---
History of Present Illness Consult date: 11/12/20 Requesting physician: MEHDI HOOVER Reason for consult: other (A-Fib with RVR; EtOH withdrawal) History of present illness: PULMONARY/CCM CONSULT NOTE (Full dictation # [id number]) Please see dictated notes for full details Past History Past Medical History: atrial fib Past Surgical History: No surgical history Social history: alcohol abuse Family history: no significant family history Medications and Allergies Allergies Allergy/AdvReac Type Severity Reaction Status Date / Time No Known Allergies Allergy Verified 11/11/20 02:08 Home Medications Medication Instructions Recorded Confirmed Last Taken Type Apixaban [Eliquis] 5 mg PO Q12HR #60 tablet 11/15/20 Unknown Rx Metoprolol [Lopressor TAB] 100 mg PO BID #60 tablet 11/15/20 Unknown Rx dilTIAZem CD [Cardizem CD] 240 mg PO QDAY #30 cap 11/15/20 Unknown Rx Active Meds: Active Medications Aspirin (Aspirin Ec 325 Mg Tab) 325 mg PO QDAY JASON Last Admin: 11/12/20 09:29 Dose: 325 mg Documented by: Diltiazem HCl (Diltiazem Cd 240 Mg Cap) 240 mg PO QDAY JASON Last Admin: 11/12/20 11:54 Dose: 240 mg Documented by: Heparin Sodium (Porcine) (Heparin 10,000 Units/10 Ml Vial) 3,600 unit 40 unit/ kg (3600 unit) IV Q6H PRN PRN Reason: Anti-Xa Assay<0.1 units/ml Diltiazem HCl (Cardizem/D5w 100mg/100ml) 100 mg in 100 mls @ 5 mls/hr IV TITR JASON; Protocol Last Titration: 11/11/20 23:25 Dose: 0 mg/hr, 0 mls/hr Documented by: Heparin Sodium/Sodium Chloride (Heparin/ 0.45% Nacl-25,000 Unit/500 Ml) 25,000 unit in 500 mls @ 27 mls/hr IV TITR JASON; Protocol Last Titration: 11/12/20 11:40 Dose: 1,550 units/hr, 31 mls/hr Documented by: Lorazepam (Lorazepam 2 Mg Tab) 2 mg PO Q1HR PRN PRN Reason: CIWA-Ar 8-15 Last Admin: 11/12/20 12:20 Dose: 2 mg Documented by: Lorazepam (Lorazepam 2 Mg Tab) 4 mg PO Q1HR PRN PRN Reason: CIWA-Ar 16-25 Last Admin: 11/12/20 14:10 Dose: 4 mg Documented by: Lorazepam (Lorazepam 2 Mg/Ml Vial) 4 mg IV Q15MIN PRN PRN Reason: CIWA-Ar >25 Last Admin: 11/11/20 20:44 Dose: 4 mg Documented by: Metoprolol Tartrate (Metoprolol Tartrate 50 Mg Tab) 50 mg PO BID [facility] Last Admin: 11/12/20 09:30 Dose: 50 mg Documented by: Sodium Chloride (Sodium Chloride 0.9% 10 Ml Flush Syringe) 10 ml IV BID [facility] Last Admin: 11/12/20 09:32 Dose: 10 ml Documented by: Sodium Chloride (Sodium Chloride 0.9% 10 Ml Flush Syringe) 10 ml IV PRN PRN PRN Reason: LINE FLUSH Physical Examination Vital signs: Vital Signs Temp Pulse Resp BP Pulse Ox 97.9 F 112 H 16 128/85 98 11/11/20 00:52 11/11/20 00:52 11/11/20 00:52 11/11/20 00:52 11/11/20 00:52 Results - Laboratory Findings CBC and BMP: 11/15/20 05:29 11/15/20 09:01 Abnormal lab findings: Abnormal Labs 11/11/20 11/11/20 11/11/20 01:09 01:09 02:08 Hgb 16.0 H Hct 46.6 H MCV 98 H MCH 34 H Plt Count Lymph % (Auto) [place] % (Auto) Seg Neutrophils % 75.5 H Heparin Anti-Xa Level Potassium Chloride 97.5 L Carbon Dioxide 20 L Creatinine Glucose 231 H Calcium Salicylates < 0.3 L Acetaminophen Plasma/Serum Alcohol 11/11/20 11/11/20 11/11/20 02:08 02:08 17:35 Hgb Hct MCV MCH Plt Count Lymph % (Auto) [place] % (Auto) Seg Neutrophils % Heparin Anti-Xa Level 0.24 L Potassium Chloride Carbon Dioxide Creatinine Glucose Calcium Salicylates Acetaminophen 5.0 L Plasma/Serum Alcohol 0.19 H 11/12/20 11/12/20 11/12/20 02:11 02:11 02:11 Hgb Hct MCV 98 H MCH 34 H Plt Count 130 L Lymph % (Auto) 37.[address] [place] % (Auto) 8.0 H Seg Neutrophils % Heparin Anti-Xa Level 0.16 L Potassium 3.4 L D Chloride Carbon Dioxide Creatinine 0.6 L Glucose 124 H Calcium 8.2 L Salicylates Acetaminophen Plasma/Serum Alcohol
[2020-11-12] MEDS: LORazepam 2 MG/ML VIAL IV PRN (19:58)
[2020-11-13] MEDS: LORazepam 2 MG TAB PO PRN ×4 (00:11→19:24)
[2020-11-13] MEDS: METOPROLOL TARTRATE 50 MG TAB PO SCH ×2 (02:39→11:41)
[2020-11-13] MEDS: LORazepam 2 MG/ML VIAL IV PRN (05:30)
[2020-11-13] MEDS ORDERED: REGADENOSON 0.4 MG/5 ML INJ IV ONE (07:43)
--- NOTE | 2020-11-13 08:23 | Progress Note ---
Assessment and Plan Assessment and plan: Chest pain. Atrial fibrillation with RVR EtOH abuse. Depression. 11/11/2020. Patient will be admitted with the above diagnosis and placed on the chest pain protocol. Will consult cardiology for further evaluation. Trend cardiac isoenzymes and follow-up serial EKGs. Given the atrial fibrillation, we will start on IV heparin for now. Continue Cardizem drip and transition to patient's home medications of Cardizem 240 mg daily and metoprolol 50 mg twice daily. Patient will be admitted to [facility] given the Cardizem drip. Patient will be placed on CIWA protocol for the EtOH abuse. 11/12/2020. Await cardiology evaluation. Cardiac isoenzymes are negative. EKG unremarkable. Patient is back in normal sinus rhythm. Patient will be transferred to telemetry. Continue metoprolol at home medication of 240 mg Cardizem. Continue IV heparin for anticoagulation. Continue CIWA protocol. Ischemic evaluation per cardiology recommendations. 11/05/2020. Continue metoprolol and Cardizem for rate control. Continue IV heparin for anticoagulation. CIWA protocol. Cardiology plans for stress test this a.m. History Interval history: No new issues overnight. Hospitalist Physical - Constitutional Vitals: Temp Pulse Resp BP Pulse Ox 98.2 F 84 18 118/70 96 11/13/20 04:55 11/13/20 04:55 11/13/20 04:55 11/13/20 04:55 11/13/20 04:55 General appearance: Present: no acute distress, well-nourished - EENT Eyes: Present: PERRL, EOM intact ENT: hearing intact, clear oral mucosa, dentition normal - Neck Neck: Present: supple, normal ROM - Respiratory Respiratory effort: normal Respiratory: bilateral: CTA - Cardiovascular Rhythm: regular Heart Sounds: Present: S1 & S2. Absent: gallop, rub - Extremities Extremities: no ischemia, No edema, Full ROM - Abdominal General gastrointestinal: soft, non-tender, non-distended, normal bowel sounds - Integumentary Integumentary: Present: clear, warm, dry - Neurologic Neurologic: CNII-XII intact, moves all extremities HEART Score - HEART Score Troponin: Troponin T < 0.010 ng/mL (0.00-0.029) 11/11/20 16:09 Results - Labs CBC & Chem 7: 11/12/20 02:11 11/12/20 02:11 Labs: Laboratory Last Values WBC 5.0 K/mm3 (4.5-11.0) 11/12/20 02:11 RBC 3.92 M/mm3 (3.65-5.03) 11/12/20 02:11 Hgb 13.2 gm/dl (11.8-15.2) 11/12/20 02:11 Hct 38.4 % (35.5-45.6) 11/12/20 02:11 MCV 98 fl (84-94) H 11/12/20 02:11 MCH 34 pg (28-32) H 11/12/20 02:11 MCHC 34 % (32-34) 11/12/20 02:11 RDW 14.8 % (13.2-15.2) 11/12/20 02:11 Plt Count 130 K/mm3 (140-440) L 11/12/20 02:11 Lymph % (Auto) 37.6 % (13.4-35.0) H 11/12/20 02:11 [place] % (Auto) 8.0 % (0.0-7.3) H 11/12/20 02:11 Eos % (Auto) 1.6 % (0.0-4.3) 11/12/20 02:11 Baso % (Auto) 1.1 % (0.0-1.8) 11/12/20 02:11 Lymph # (Auto) 1.9 K/mm3 (1.2-5.4) 11/12/20 02:11 [place] # (Auto) 0.4 K/mm3 (0.0-0.8) 11/12/20 02:11 Eos # (Auto) 0.1 K/mm3 (0.0-0.4) 11/12/20 02:11 Baso # (Auto) 0.1 K/mm3 (0.0-0.1) 11/12/20 02:11 Seg Neutrophils % 51.7 % (40.0-70.0) 11/12/20 02:11 Seg Neutrophils # 2.6 K/mm3 (1.8-7.7) 11/12/20 02:11 Heparin Anti-Xa Level 0.65 U.I./ml (0.3-0.7) 11/12/20 18:08 Sodium 138 mmol/L (137-145) 11/12/20 02:11 Potassium 3.4 mmol/L (3.6-5.0) L D 11/12/20 02:11 Chloride 105.7 mmol/L (98-107) 11/12/20 02:11 Carbon Dioxide 23 mmol/L (22-30) 11/12/20 02:11 Anion Gap 13 mmol/L 11/12/20 02:11 BUN 11 mg/dL (9-20) 11/12/20 02:11 Creatinine 0.6 mg/dL (0.8-1.3) L 11/12/20 02:11 Estimated GFR > 60 ml/min 11/12/20 02:11 BUN/Creatinine Ratio 18 % 11/12/20 02:11 Glucose 124 mg/dL (75-100) H 11/12/20 02:11 Calcium 8.2 mg/dL (8.4-10.2) L 11/12/20 02:11 Magnesium 1.90 mg/dL (1.7-2.3) 11/11/20 12:59 Total Bilirubin 0.70 mg/dL (0.1-1.2) 11/11/20 01:09 AST 30 units/L (5-40) 11/11/20 01:09 ALT 26 units/L (7-56) 11/11/20 01:09 Alkaline Phosphatase 72 units/L (35-129) 11/11/20 01:09 Troponin T < 0.010 ng/mL (0.00-0.029) 11/11/20 16:09 Total Protein 7.6 g/dL (6.3-8.2) 11/11/20 01:09 Albumin 4.8 g/dL (3.9-5) 11/11/20 01:09 Albumin/Globulin Ratio 1.7 % 11/11/20 01:09 Urine Color Yellow (Yellow) 11/11/20 Unknown Urine Turbidity Clear (Clear) 11/11/20 Unknown Urine pH 5.0 (5.0-7.0) 11/11/20 Unknown Ur Specific [place] 1.025 (1.003-1.030) 11/11/20 Unknown Urine Protein 100 mg/dl mg/dL (Negative) 11/11/20 Unknown Urine Glucose (UA) 50 mg/dL (Negative) 11/11/20 Unknown Urine Ketones Tr mg/dL (Negative) 11/11/20 Unknown Urine Blood Sm (Negative) 11/11/20 Unknown Urine Nitrite Neg (Negative) 11/11/20 Unknown Urine Bilirubin Neg (Negative) 11/11/20 Unknown Urine Urobilinogen 2.0 mg/dL (<2.0) 11/11/20 Unknown Ur Leukocyte Esterase Neg (Negative) 11/11/20 Unknown Urine WBC (Auto) < 1.0 /HPF (0.0-6.0) 11/11/20 Unknown Urine RBC (Auto) 4.0 /HPF (0.0-6.0) 11/11/20 Unknown Urine Bacteria (Auto) 1+ /HPF (Negative) 11/11/20 Unknown Hyaline Casts 1 /LPF 11/11/20 Unknown Urine Mucus 1+ /HPF 11/11/20 Unknown Salicylates < 0.3 mg/dL (2.8-20.0) L 11/11/20 02:08 Urine Opiates Screen Negative 11/11/20 Unknown Urine Methadone Screen Negative 11/11/20 Unknown Acetaminophen 5.0 ug/mL (10.0-30.0) L 11/11/20 02:08 Ur Barbiturates Screen Negative 11/11/20 Unknown Ur Phencyclidine Scrn Negative 11/11/20 Unknown Ur Amphetamines Screen Negative 11/11/20 Unknown U Benzodiazepines Scrn Positive 11/11/20 Unknown Urine Cocaine Screen Negative 11/11/20 Unknown U Marijuana (THC) Screen Negative 11/11/20 Unknown Drugs of Abuse Note Disclamer 11/11/20 Unknown Plasma/Serum Alcohol 0.19 % (0-0.07) H 11/11/20 02:08 Coronavirus (PCR) Negative (Negative) 11/11/20 Unknown [place]/IV: Voiding Method Urinal Active Medications - Current Medications Current Medications: Generic Name Dose Route Start Last Admin Trade Name Freq PRN Reason Stop Dose Admin Aspirin 325 mg 11/12/20 10:00 11/12/20 09:29 Aspirin Ec 325 Mg Tab PO 325 mg QDAY JASON Administration Diltiazem HCl 240 mg 11/12/20 10:00 11/12/20 11:54 Diltiazem Cd 240 Mg Cap PO 240 mg QDAY JASON Administration Heparin Sodium (Porcine) 3,600 unit 11/11/20 09:43 Heparin 10,000 Units/10 Ml Vial 40 unit/kg (3600 unit) IV Q6H PRN Anti-Xa Assay<0.1 units/ml Diltiazem HCl 100 mg in 100 mls @ 5 mls/hr 11/11/20 10:00 11/11/20 23:25 Cardizem/D5w 100mg/100ml IV 0 mg/hr TITR JASON 0 mls/hr Titration Protocol 5 MG/HR Heparin Sodium/Sodium Chloride 25,000 unit in 500 mls @ 27 mls/hr 11/11/20 10:00 11/12/20 20:13 Heparin/ 0.45% Nacl-25,000 Unit/500 Ml IV 1,550 units/hr TITR JASON 31 mls/hr Administration Protocol 1,350 UNITS/HR Lorazepam 2 mg 11/11/20 02:04 11/12/20 17:22 Lorazepam 2 Mg Tab PO 2 mg Q1HR PRN Administration CIWA-Ar 8-15 Lorazepam 4 mg 11/11/20 02:04 11/13/20 00:11 Lorazepam 2 Mg Tab PO 4 mg Q1HR PRN Administration CIWA-Ar 16-25 Lorazepam 4 mg 11/11/20 02:04 11/13/20 05:30 Lorazepam 2 Mg/Ml Vial IV 4 mg Q15MIN PRN Administration CIWA-Ar >25 Metoprolol Tartrate 50 mg 11/11/20 22:00 11/13/20 02:39 Metoprolol Tartrate 50 Mg Tab PO Not Given BID JASON Sodium Chloride 10 ml 11/11/20 22:00 11/13/20 02:40 Sodium Chloride 0.9% 10 Ml Flush Syringe IV Not Given BID JASON Sodium Chloride 10 ml 11/11/20 10:15 11/13/20 05:30 Sodium Chloride 0.9% 10 Ml Flush Syringe IV 10 ml PRN PRN Administration LINE FLUSH
[2020-11-13] MEDS: dilTIAZem CD 240 MG CAP PO SCH (11:40)
[2020-11-13] MEDS: ASPIRIN EC 325 MG TAB PO SCH (11:41)
--- NOTE | 2020-11-13 12:48 | Nuclear Medicine Report ---
APPROVED REPORT Exam: Nuclear Stress Test Indication: Chest pain BMI: 0 Stress Test Details Stress Test: Pharmacologic stress testing performed using 0.4 mg of regadenoson per 5 mL given IV over 10 seconds. HR Resting HR: 77 bpm Max HR Achieved: 99 bpm Max Heart Rate (APMHR): 166.737407 bpm Target HR (85% APMHR): 141.947778 bpm % of APMHR: 59.64 Recovery HR: 86 bpm HR response to stress: Normal HR response to stress BP Resting BP: 129/89 mmHg Max BP: 133/91 mmHg Recovery BP: 112/79 mmHg BP response to stress: Normal blood pressure response to stress. ECG Resting ECG: Sinus Rhythm Stress ECG: Sinus Rhythm NM EXAM: Myocardial Perfusion REST/STRESS Imaging Protocol: Rest Tc-99m/Stress Tc-99m 1 day Resting Data Rest SPECT myocardial perfusion imaging was performed in supine position 45 minutes following the intravenous injection of 10 mCi of Tc-99m Myoview. Time of rest injection: 0900 Pharmacologic Stress Pharmacologic stress test was performed by injecting Regadenoson 0.4 mg IV push followed by the intravenous injection of 28 mCi of Tc-99m Myoview. Time of stress injection: 1030 Date: 11/13/2020 The images were gated to evaluate regional wall motion and calculate left ventricular ejection fraction. Perfusion Nuclear Conclusion ECG Findings: negative for ischemia Clinical Findings: negative for ischemia Nuclear Findings: negative for ischemia Exercise Capacity: not assessed Left Ventricular Function: normal Normal study. No scintigraphic evidence for myocardial ischemia or scar. Normal left ventricular size and function with no regional wall motion abnormalities.
--- NOTE | 2020-11-13 13:04 | Progress Note ---
Assessment and Plan Paroxysmal A. fib with RVR * Patient is chest pain-free with no cardiac complaints. Troponins are negative x4. Twelve-lead ECG shows no acute ischemic changes. AMI ruled out * Echocardiogram reviewed (11/11/2020): LVEF is 55 to 60%. LV is normal size. LV SF is normal. Mild diastolic dysfunction. RV SF is normal. Moderate MR. Mild MVP. * Lexiscan MPI stress test (11/13/2020): Negative for reversible ischemia * Optimize rate control: Increase metoprolol to 100 mg twice daily * Anticoagulation: Discontinue heparin gtt, initiate Eliquis 5 mg twice daily ETOH Withdrawal * CIWA Protocol mgmt per primary team DVT Prophylaxis * Eliquis Continue to monitor on telemetry. Anticipate discharge tomorrow if appropriate rate control is achieved. Patient should follow-up with Dr Jaskaran Wellington, [facility] heart specialists within 1 to 2 weeks of discharge. #[phone] This patient was seen in conjunction with Dr Chun who agrees with this assessment and plan of care - Patient Problems (1) DVT prophylaxis Current Visit: Yes Status: Acute (2) Alcohol withdrawal Current Visit: Yes Status: Acute Qualifiers: Complication of substance-induced condition: with unspecified complication Qualified Code(s): F10.239 - Alcohol dependence with withdrawal, unspecified (3) Atrial fibrillation with RVR Current Visit: Yes Status: Chronic Subjective Date of service: 11/13/20 Principal diagnosis: Afib RVR Interval history: Patient resting comfortably in bed. No chest pain or shortness of breath overnight. Telemetry reviewed showing sinus rhythm 85 with paroxysmal A. fib. Objective Last Vital Signs Temp 98.5 F 11/13/20 07:43 Pulse 76 11/13/20 12:00 Resp 16 11/13/20 07:43 BP 130/83 11/13/20 10:32 Pulse Ox 98 11/13/20 12:00 - Physical Examination General: Appears Well HEENT: Positive: PERRL, Normocephaly, Mucus Membranes Moist Neck: Positive: neck supple, trachea midline Cardiac: Positive: Reg Rate and Rhythm, S1/S2 Lungs: Positive: Normal Exam, clear to auscultation Neuro: Positive: Grossly Intact Abdomen: Positive: Unremarkable, Soft Musculoskeletal: No Pain Extremities: Present: upper extr. pulses, lower extr. pulses. Absent: edema - Imaging and Cardiology EKG: report reviewed, image reviewed Nuclear stress test: report reviewed (Lexiscan MPI stress test (11/13/2020): Is negative for reversible ischemia) Echo: report reviewed (Echocardiogram reviewed (11/11/2020): LVEF is 55 to 60%. LV is normal size. LV SF is normal. Mild diastolic dysfunction. RV SF is normal. Moderate MR. Mild MVP.) - Telemetry EKG Rhythm: Atrial Fibrillation - EKG Sinus rhythms and dysrhythmias: sinus rhythm
[2020-11-13 13:50] LABS: Hematocrit 43.5 % (35.5-45.6); Hemoglobin 14.9 gm/dl (11.8-15.2); Mean Corpuscular HGB Conc 34 % (32-34); Mean Corpuscular Volume 98 fl (84-94); Platelet Count 138 K/mm3 (140-440); Red Blood Count 4.42 M/mm3 (3.65-5.03); Red Cell Distribution Width 14.6 % (13.2-15.2)
--- NOTE | 2020-11-13 14:01 | Progress Note ---
Assessment and Plan 55-year-old male who presents through the emergency department with chief complaint of chest pain. Patient reported that he was at [facility] a few days ago for alcohol withdrawal. Patient states that he began drinking again on Friday approximately fifth of alcohol or more daily. He states that his last drink was approximately 6 hours ago. Patient reports feeling anxious and palpitations. Patient denies any cough or cold-like symptoms. No fever chills. No headache or visual disturbances. Patient describes his chest pain as a burning sensation in the middle of his chest with no associated shortness of breath. No diaphoresis, nausea or vomiting. Patient was noted on telemetry to have A. fib with RVR. Patient reports last time he was in atrial fibrillation was approximately 10 years ago. Patient reports that he has been on Cardizem 240 mg daily and metoprolol 50 mg twice daily. Patient reports medical noncompliance. Patient denies smoking. Drinks alcohol. Denies drug abuse. Worked on [employer] in the past. and has two children. No known drug allergies. Patient alert, awake and shaking. watch for DTs. Patient is on Lorazepam. Patient is on room air. O2 saturation 98%. Patient afebrile. No leukocytosis. Blood pressure 112/79. Heart rate 76. Chest xray done 11/11/20 reported No acute findings. Patient is on Apixaban for atrial fibrillation. - Patient Problems (1) Alcohol withdrawal Current Visit: Yes Status: Acute Qualifiers: Complication of substance-induced condition: with unspecified complication Qualified Code(s): F10.239 - Alcohol dependence with withdrawal, unspecified Plan to address problem: Patient is on Lorazepam. Management as per primary care. (2) Atrial fibrillation with RVR Current Visit: Yes Status: Chronic Plan to address problem: Patient is on Apixaban. Subjective Date of service: 11/13/20 Interval history: 55-year-old male who presents through the emergency department with chief complaint of chest pain. Patient reported that he was at [facility] a few days ago for alcohol withdrawal. Patient states that he began drinking again on Friday approximately fifth of alcohol or more daily. He states that his last drink was approximately 6 hours ago. Patient reports feeling anxious and palpitations. Patient denies any cough or cold-like symptoms. No fever chills. No headache or visual disturbances. Patient describes his chest pain as a burning sensation in the middle of his chest with no associated shortness of breath. No diaphoresis, nausea or vomiting. Patient was noted on telemetry to have A. fib with RVR. Patient reports last time he was in atrial fibrillation was approximately 10 years ago. Patient reports that he has been on Cardizem 240 mg daily and metoprolol 50 mg twice daily. Patient reports medical noncompliance. Patient denies smoking. Drinks alcohol. Denies drug abuse. Worked on [employer] in the past. and has two children. No known drug allergies. Patient alert, awake and shaking. watch for DTs. Patient is on Lorazepam. Patient is on room air. O2 saturation 98%. Patient afebrile. No leukocytosis. Blood pressure 112/79. Heart rate 76. Chest xray done 11/11/20 reported No acute findings. Patient is on Apixaban for atrial fibrillation. Objective Vital Signs - 12hr 11/13/20 11/13/20 11/13/20 04:55 07:43 10:10 Temperature 98.2 F 98.5 F Pulse Rate 84 68 Respiratory 18 16 Rate Blood Pressure 118/87 129/89 Blood Pressure 118/70 [Left] O2 Sat by Pulse 96 94 Oximetry 11/13/20 11/13/20 11/13/20 10:22 10:25 10:26 Temperature Pulse Rate Respiratory Rate Blood Pressure 132/91 133/87 112/79 Blood Pressure [Left] O2 Sat by Pulse Oximetry 11/13/20 11/13/20 11/13/20 10:27 10:29 10:31 Temperature Pulse Rate Respiratory Rate Blood Pressure 120/81 131/84 134/85 Blood Pressure [Left] O2 Sat by Pulse Oximetry 11/13/20 10:32 Temperature Pulse Rate Respiratory Rate Blood Pressure 130/83 Blood Pressure [Left] O2 Sat by Pulse Oximetry Constitutional: no acute distress, alert, other (Patient has shakes.) Eyes: non-icteric ENT: oropharynx moist Neck: supple, no lymphadenopathy Ascultation: Bilateral: diminished breath sounds Cardiovascular: irregular rhythm Gastrointestinal: normoactive bowel sounds Integumentary: normal Extremities: no cyanosis, no edema Neurologic: normal mental status, non-focal exam, pupils equal and round Psychiatric: anxious CBC and BMP: 11/13/20 12:54 11/12/20 02:11 Abnormal lab findings: Abnormal Labs 11/11/20 11/11/20 11/11/20 01:09 01:09 02:08 Hgb 16.0 H Hct 46.6 H MCV 98 H MCH 34 H Plt Count Lymph % (Auto) [place] % (Auto) Seg Neutrophils % 75.5 H Heparin Anti-Xa Level Potassium Chloride 97.5 L Carbon Dioxide 20 L Creatinine Glucose 231 H Calcium Salicylates < 0.3 L Acetaminophen Plasma/Serum Alcohol 11/11/20 11/11/20 11/11/20 02:08 02:08 17:35 Hgb Hct MCV MCH Plt Count Lymph % (Auto) [place] % (Auto) Seg Neutrophils % Heparin Anti-Xa Level 0.24 L Potassium Chloride Carbon Dioxide Creatinine Glucose Calcium Salicylates Acetaminophen 5.0 L Plasma/Serum Alcohol 0.19 H 11/12/20 11/12/20 11/12/20 02:11 02:11 02:11 Hgb Hct MCV 98 H MCH 34 H Plt Count 130 L Lymph % (Auto) 37.6 H [place] % (Auto) 8.0 H Seg Neutrophils % Heparin Anti-Xa Level 0.16 L Potassium 3.4 L D Chloride Carbon Dioxide Creatinine 0.6 L Glucose 124 H Calcium 8.2 L Salicylates Acetaminophen Plasma/Serum Alcohol 11/13/20 11/13/20 08:29 12:54 Hgb Hct MCV 98 H MCH 34 H Plt Count 138 L Lymph % (Auto) [place] % (Auto) Seg Neutrophils % Heparin Anti-Xa Level 0.79 H Potassium Chloride Carbon Dioxide Creatinine Glucose Calcium Salicylates Acetaminophen Plasma/Serum Alcohol Chest x-ray: report reviewed, image reviewed Additional Studies: CHEST 2 VIEWS 11/11/20 INDICATION / CLINICAL INFORMATION: chestpain. FINDINGS: SUPPORT DEVICES: None. HEART / MEDIASTINUM: No significant abnormality. LUNGS / PLEURA: No significant pulmonary or pleural abnormality. No pneumothorax. ADDITIONAL FINDINGS: No significant additional findings. IMPRESSION: 1. No acute findings.
[2020-11-13] MEDS: METOPROLOL TARTRATE 100 MG TAB PO SCH ×2 (15:48→21:34)
[2020-11-13] MEDS: APIXABAN 5 MG TAB PO SCH (15:48)
[2020-11-13] MEDS ORDERED: METOPROLOL TARTRATE 50 MG TAB PO SCH ×2 (22:00)
[2020-11-14 00:09] LABS: INR 1.06 (0.87-1.13)
[2020-11-14 00:10] LABS: Partial Thromboplastin Time 29.2 Sec. (24.2-36.6)
[2020-11-14] MEDS: LORazepam 2 MG TAB PO PRN ×6 (00:23→22:06)
[2020-11-14] MEDS: APIXABAN 5 MG TAB PO SCH ×3 (06:19→21:18)
[2020-11-14] MEDS ORDERED: dilTIAZem CD 240 MG CAP PO SCH (10:00)
[2020-11-14] MEDS: ASPIRIN EC 325 MG TAB PO SCH (10:04)
--- NOTE | 2020-11-14 10:04 | Progress Note ---
Assessment and Plan Assessment and plan: Chest pain. Atrial fibrillation with RVR EtOH abuse. Depression. 11/11/2020. Patient will be admitted with the above diagnosis and placed on the chest pain protocol. Will consult cardiology for further evaluation. Trend cardiac isoenzymes and follow-up serial EKGs. Given the atrial fibrillation, we will start on IV heparin for now. Continue Cardizem drip and transition to patient's home medications of Cardizem 240 mg daily and metoprolol 50 mg twice daily. Patient will be admitted to [facility] given the Cardizem drip. Patient will be placed on CIWA protocol for the EtOH abuse. 11/12/2020. Await cardiology evaluation. Cardiac isoenzymes are negative. EKG unremarkable. Patient is back in normal sinus rhythm. Patient will be transferred to telemetry. Continue metoprolol at home medication of 240 mg Cardizem. Continue IV heparin for anticoagulation. Continue CIWA protocol. Ischemic evaluation per cardiology recommendations. 11/13/2020. Continue metoprolol and Cardizem for rate control. Continue IV heparin for anticoagulation. CIWA protocol. Cardiology plans for stress test this a.m. 11/14/20; continue metoprolol for rate control, and Eliquis for anticoagulation. Patient is on CIWA protocol for alcohol withdrawal and was requiring lorazepam this morning. Patient will be discharged in a.m. Patient had tremors this morning. History Interval history: Patient was seen and evaluated this morning Patient had tremors earlier this morning and was given Ativan Patient is complaining generalized weakness Hospitalist Physical - Physical exam Narrative exam: Not in cardiopulmonary distress. The patient appeared well nourished and normally developed. Vital signs as documented. Head exam is unremarkable. No scleral icterus . Neck is without jugular venous distension, thyromegaly, or carotid bruits. Lungs are clear to auscultation. Cardiac exam reveals regular rate and Rhythm. Abdominal exam reveals normal bowel sounds, nontender, no organomegaly. Extremities are nonedematous and both femoral and pedal pulses are normal. KITCHEN LEAD: Alert and oriented 3. No focal weakness. - Constitutional Vitals: Temp Pulse Resp BP Pulse Ox 98.1 F 58 L 18 107/74 95 11/14/20 07:30 11/14/20 07:30 11/14/20 07:30 11/14/20 07:30 11/14/20 07:30 General appearance: Present: no acute distress, well-nourished HEART Score - HEART Score Troponin: Troponin T < 0.010 ng/mL (0.00-0.029) 11/11/20 16:09 Results - Labs CBC & Chem 7: 11/13/20 12:54 11/13/20 23:26 Labs: Laboratory Last Values WBC 5.6 K/mm3 (4.5-11.0) 11/13/20 12:54 RBC 4.42 M/mm3 (3.65-5.03) 11/13/20 12:54 Hgb 14.9 gm/dl (11.8-15.2) 11/13/20 12:54 Hct 43.5 % (35.5-45.6) 11/13/20 12:54 MCV 98 fl (84-94) H 11/13/20 12:54 MCH 34 pg (28-32) H 11/13/20 12:54 MCHC 34 % (32-34) 11/13/20 12:54 RDW 14.6 % (13.2-15.2) 11/13/20 12:54 Plt Count 138 K/mm3 (140-440) L 11/13/20 12:54 Lymph % (Auto) 37.6 % (13.4-35.0) H 11/12/20 02:11 Citrus % (Auto) 8.0 % (0.0-7.3) H 11/12/20 02:11 Eos % (Auto) 1.6 % (0.0-4.3) 11/12/20 02:11 Baso % (Auto) 1.1 % (0.0-1.8) 11/12/20 02:11 Lymph # (Auto) 1.9 K/mm3 (1.2-5.4) 11/12/20 02:11 [place] # (Auto) 0.4 K/mm3 (0.0-0.8) 11/12/20 02:11 Eos # (Auto) 0.1 K/mm3 (0.0-0.4) 11/12/20 02:11 Baso # (Auto) 0.1 K/mm3 (0.0-0.1) 11/12/20 02:11 Seg Neutrophils % 51.7 % (40.0-70.0) 11/12/20 02:11 Seg Neutrophils # 2.6 K/mm3 (1.8-7.7) 11/12/20 02:11 PT 14.4 Sec. (12.2-14.9) 11/13/20 23:26 INR 1.06 (0.87-1.13) 11/13/20 23:26 APTT 29.2 Sec. (24.2-36.6) 11/13/20 23:26 Heparin Anti-Xa Level 0.79 U.I./ml (0.3-0.7) H 11/13/20 08:29 Sodium 138 mmol/L (137-145) 11/12/20 02:11 Potassium 3.4 mmol/L (3.6-5.0) L D 11/12/20 02:11 Chloride 105.7 mmol/L (98-107) 11/12/20 02:11 Carbon Dioxide 23 mmol/L (22-30) 11/12/20 02:11 Anion Gap 13 mmol/L 11/12/20 02:11 BUN 11 mg/dL (9-20) 11/12/20 02:11 Creatinine 0.9 mg/dL (0.8-1.3) 11/13/20 23:26 Estimated GFR > 60 ml/min 11/13/20 23:26 BUN/Creatinine Ratio 18 % 11/12/20 02:11 Glucose 124 mg/dL (75-100) H 11/12/20 02:11 Calcium 8.2 mg/dL (8.4-10.2) L 11/12/20 02:11 Magnesium 1.90 mg/dL (1.7-2.3) 11/11/20 12:59 Total Bilirubin 0.70 mg/dL (0.1-1.2) 11/11/20 01:09 AST 30 units/L (5-40) 11/11/20 01:09 ALT 26 units/L (7-56) 11/11/20 01:09 Alkaline Phosphatase 72 units/L (35-129) 11/11/20 01:09 Troponin T < 0.010 ng/mL (0.00-0.029) 11/11/20 16:09 Total Protein 7.6 g/dL (6.3-8.2) 11/11/20 01:09 Albumin 4.8 g/dL (3.9-5) 11/11/20 01:09 Albumin/Globulin Ratio 1.7 % 11/11/20 01:09 Urine Color Yellow (Yellow) 11/11/20 Unknown Urine Turbidity Clear (Clear) 11/11/20 Unknown Urine pH 5.0 (5.0-7.0) 11/11/20 Unknown Ur Specific [place] 1.025 (1.003-1.030) 11/11/20 Unknown Urine Protein 100 mg/dl mg/dL (Negative) 11/11/20 Unknown Urine Glucose (UA) 50 mg/dL (Negative) 11/11/20 Unknown Urine Ketones Tr mg/dL (Negative) 11/11/20 Unknown Urine Blood Sm (Negative) 11/11/20 Unknown Urine Nitrite Neg (Negative) 11/11/20 Unknown Urine Bilirubin Neg (Negative) 11/11/20 Unknown Urine Urobilinogen 2.0 mg/dL (<2.0) 11/11/20 Unknown Ur Leukocyte Esterase Neg (Negative) 11/11/20 Unknown Urine WBC (Auto) < 1.0 /HPF (0.0-6.0) 11/11/20 Unknown Urine RBC (Auto) 4.0 /HPF (0.0-6.0) 11/11/20 Unknown Urine Bacteria (Auto) 1+ /HPF (Negative) 11/11/20 Unknown Hyaline Casts 1 /LPF 11/11/20 Unknown Urine Mucus 1+ /HPF 11/11/20 Unknown Salicylates < 0.3 mg/dL (2.8-20.0) L 11/11/20 02:08 Urine Opiates Screen Negative 11/11/20 Unknown Urine Methadone Screen Negative 11/11/20 Unknown Acetaminophen 5.0 ug/mL (10.0-30.0) L 11/11/20 02:08 Ur Barbiturates Screen Negative 11/11/20 Unknown Ur Phencyclidine Scrn Negative 11/11/20 Unknown Ur Amphetamines Screen Negative 11/11/20 Unknown U Benzodiazepines Scrn Positive 11/11/20 Unknown Urine Cocaine Screen Negative 11/11/20 Unknown U Marijuana (THC) Screen Negative 11/11/20 Unknown Drugs of Abuse Note Disclamer 11/11/20 Unknown Plasma/Serum Alcohol 0.19 % (0-0.07) H 11/11/20 02:08 Coronavirus (PCR) Negative (Negative) 11/11/20 Unknown Henning/IV: Voiding Method Urinal Active Medications - Current Medications Current Medications: Generic Name Dose Route Start Last Admin Trade Name Freq PRN Reason Stop Dose Admin Apixaban 5 mg 11/13/20 15:00 11/14/20 06:19 Apixaban 5 Mg Tab PO Not Given Q12HR JASON Protocol Aspirin 325 mg 11/12/20 10:00 11/13/20 11:41 Aspirin Ec 325 Mg Tab PO 325 mg QDAY JASON Administration Diltiazem HCl 240 mg 11/14/20 10:00 Diltiazem Cd 240 Mg Cap PO QDAY JASON Diltiazem HCl 100 mg in 100 mls @ 5 mls/hr 11/11/20 10:00 11/11/20 23:25 Cardizem/D5w 100mg/100ml IV 0 mg/hr TITR JASON 0 mls/hr Titration Protocol 5 MG/HR Lorazepam 2 mg 11/11/20 02:04 11/14/20 06:33 Lorazepam 2 Mg Tab PO 2 mg Q1HR PRN Administration CIWA-Ar 8-15 Lorazepam 4 mg 11/11/20 02:04 11/13/20 00:11 Lorazepam 2 Mg Tab PO 4 mg Q1HR PRN Administration CIWA-Ar 16-25 Lorazepam 4 mg 11/11/20 02:04 11/13/20 05:30 Lorazepam 2 Mg/Ml Vial IV 4 mg Q15MIN PRN Administration CIWA-Ar >25 Metoprolol Tartrate 100 mg 11/13/20 15:00 11/13/20 21:34 Metoprolol Tartrate 100 Mg Tab PO 100 mg BID JASON Administration Sodium Chloride 10 ml 11/11/20 22:00 11/13/20 21:37 Sodium Chloride 0.9% 10 Ml Flush Syringe IV 10 ml BID JASON Administration Sodium Chloride 10 ml 11/11/20 10:15 11/13/20 05:30 Sodium Chloride 0.9% 10 Ml Flush Syringe IV 10 ml PRN PRN Administration LINE FLUSH
[2020-11-14] MEDS: METOPROLOL TARTRATE 100 MG TAB PO SCH ×2 (10:07→21:18)
--- NOTE | 2020-11-14 10:10 | Progress Note ---
Assessment and Plan 55-year-old male who presents through the emergency department with chief complaint of chest pain. Patient reported that he was at [place] a few days ago for alcohol withdrawal. Patient states that he began drinking again on Friday approximately fifth of alcohol or more daily. He states that his last drink was approximately 6 hours ago. Patient reports feeling anxious and palpitations. Patient denies any cough or cold-like symptoms. No fever chills. No headache or visual disturbances. Patient describes his chest pain as a burning sensation in the middle of his chest with no associated shortness of breath. No diaphoresis, nausea or vomiting. Patient was noted on telemetry to have A. fib with RVR. Patient reports last time he was in atrial fibrillation was approximately 10 years ago. Patient reports that he has been on Cardizem 240 mg daily and metoprolol 50 mg twice daily. Patient reports medical noncompliance. Patient denies smoking. Drinks alcohol. Denies drug abuse. Worked on [employer] in the past. and has two children. No known drug allergies. Patient alert, awake . Resting on room air. O2 saturation 95%. Patient says feeling better. No appoearent shakes to day. No complaint of chest pain or shortness of breath. Patient afebrile. No leukocytosis. Blood pressure 112/72. Heart rate 68. Chest xray done 11/11/20 reported No acute findings. Patient is on Apixaban for atrial fibrillation. - Patient Problems (1) Alcohol withdrawal Current Visit: Yes Status: Acute Qualifiers: Complication of substance-induced condition: with unspecified complication Qualified Code(s): F10.239 - Alcohol dependence with withdrawal, unspecified Plan to address problem: Patient is on Lorazepam. Management as per primary care. (2) Atrial fibrillation with RVR Current Visit: Yes Status: Chronic Plan to address problem: Patient is on Apixaban. Subjective Date of service: 11/14/20 Principal diagnosis: Afib RVR Interval history: 55-year-old male who presents through the emergency department with chief complaint of chest pain. Patient reported that he was at [facility] a few days ago for alcohol withdrawal. Patient states that he began drinking again on Friday approximately fifth of alcohol or more daily. He states that his last drink was approximately 6 hours ago. Patient reports feeling anxious and palpitations. Patient denies any cough or cold-like symptoms. No fever chills. No headache or visual disturbances. Patient describes his chest pain as a burning sensation in the middle of his chest with no associated shortness of breath. No diaphoresis, nausea or vomiting. Patient was noted on telemetry to have A. fib with RVR. Patient reports last time he was in atrial fibrillation was approximately 10 years ago. Patient reports that he has been on Cardizem 240 mg daily and metoprolol 50 mg twice daily. Patient reports medical noncompliance. Patient denies smoking. Drinks alcohol. Denies drug abuse. Worked on [employer] in the past. and has two children. No known drug allergies. Patient alert, awake . Resting on room air. O2 saturation 95%. Patient says feeling better. No appoearent shakes to day. No complaint of chest pain or shortness of breath. Patient afebrile. No leukocytosis. Blood pressure 112/72. Heart rate 68. Chest xray done 11/11/20 reported No acute findings. Patient is on Apixaban for atrial fibrillation. Objective Vital Signs - 12hr 11/13/20 11/14/20 11/14/20 23:50 03:53 07:30 Temperature 97.8 F 97.3 F L 98.1 F Pulse Rate 72 61 58 L Respiratory 16 16 18 Rate Blood Pressure 113/79 109/73 107/74 O2 Sat by Pulse 95 94 95 Oximetry Constitutional: no acute distress, alert, other (Patient has shakes.) Eyes: non-icteric ENT: oropharynx moist Neck: supple, no lymphadenopathy Ascultation: Bilateral: diminished breath sounds Cardiovascular: irregular rhythm Gastrointestinal: normoactive bowel sounds Integumentary: normal Extremities: no cyanosis, no edema Neurologic: normal mental status, non-focal exam, pupils equal and round Psychiatric: anxious CBC and BMP: 11/13/20 12:54 11/13/20 23:26 ABG, PT/INR, D-dimer: PT/INR, D-dimer PT 14.4 Sec. (12.2-14.9) 11/13/20 23:26 INR 1.06 (0.87-1.13) 11/13/20 23:26 Abnormal lab findings: Abnormal Labs 11/11/20 11/11/20 11/11/20 01:09 01:09 02:08 Hgb 16.0 H Hct 46.6 H MCV 98 H MCH 34 H Plt Count Lymph % (Auto) [place] % (Auto) Seg Neutrophils % 75.5 H Heparin Anti-Xa Level Potassium Chloride 97.5 L Carbon Dioxide 20 L Creatinine Glucose 231 H Calcium Salicylates < 0.3 L Acetaminophen Plasma/Serum Alcohol 11/11/20 11/11/20 11/11/20 02:08 02:08 17:35 Hgb Hct MCV MCH Plt Count Lymph % (Auto) [place] % (Auto) Seg Neutrophils % Heparin Anti-Xa Level 0.24 L Potassium Chloride Carbon Dioxide Creatinine Glucose Calcium Salicylates Acetaminophen 5.0 L Plasma/Serum Alcohol 0.19 H 11/12/20 11/12/20 11/12/20 02:11 02:11 02:11 Hgb Hct MCV 98 H MCH 34 H Plt Count 130 L Lymph % (Auto) 37.6 H [place] % (Auto) 8.0 H Seg Neutrophils % Heparin Anti-Xa Level 0.16 L Potassium 3.4 L D Chloride Carbon Dioxide Creatinine 0.6 L Glucose 124 H Calcium 8.2 L Salicylates Acetaminophen Plasma/Serum Alcohol 11/13/20 11/13/20 08:29 12:54 Hgb Hct MCV 98 H MCH 34 H Plt Count 138 L Lymph % (Auto) [place] % (Auto) Seg Neutrophils % Heparin Anti-Xa Level 0.79 H Potassium Chloride Carbon Dioxide Creatinine Glucose Calcium Salicylates Acetaminophen Plasma/Serum Alcohol
--- NOTE | 2020-11-14 13:39 | Progress Note ---
Assessment and Plan Paroxysmal A. fib with RVR * Patient is chest pain-free with no cardiac complaints. Troponins are negative x4. Twelve-lead ECG shows no acute ischemic changes. AMI ruled out * Echocardiogram reviewed (11/11/2020): LVEF is 55 to 60%. LV is normal size. LV SF is normal. Mild diastolic dysfunction. RV SF is normal. Moderate MR. Mild MVP. * Lexiscan MPI stress test (11/13/2020): Negative for reversible ischemia * Continue current rate control regimen as tolerated: Metoprolol 100 mg twice daily, Cardizem 240 daily. * Anticoagulation: Continue Eliquis 5 mg twice daily ETOH Withdrawal * [place] Protocol mgmt per primary team DVT Prophylaxis * Eliquis Continue to monitor on telemetry. Patient is appropriately rate controlled. And may discharge from cardiology standpoint. Patient should follow-up with Dr Jaskaran Wellington, [facility] heart specialists within 1 to 2 weeks of discharge (scheduling pending). #[id number] This patient was seen in conjunction with Dr Chun who agrees with this assessment and plan of care - Patient Problems (1) DVT prophylaxis Current Visit: Yes Status: Acute (2) Alcohol withdrawal Current Visit: Yes Status: Acute Qualifiers: Complication of substance-induced condition: with unspecified complication Qualified Code(s): F10.239 - Alcohol dependence with withdrawal, unspecified (3) Atrial fibrillation with RVR Current Visit: Yes Status: Chronic Subjective Date of service: 11/14/20 Principal diagnosis: Afib RVR Interval history: Patient resting comfortably in bed. No shortness of breath or chest pain overnight. Patient continues to complain of hand tremor secondary to EtOH withdrawal Telemetry reviewed sinus rhythm 88 with paroxysmal A. fib 80s. Objective Last Vital Signs Temp 98.1 F 11/14/20 07:30 Pulse 58 L 11/14/20 10:00 Resp 18 11/14/20 07:30 BP 107/74 11/14/20 07:30 Pulse Ox 95 11/14/20 10:00 - Physical Examination General: Appears Well HEENT: Positive: PERRL, Normocephaly, Mucus Membranes Moist Neck: Positive: neck supple, trachea midline Cardiac: Positive: Reg Rate and Rhythm, irregularly irregular, S1/S2 Lungs: Positive: Normal Exam, Normal Breath Sounds Neuro: Positive: Grossly Intact Abdomen: Positive: Unremarkable, Soft Musculoskeletal: No Pain Extremities: Present: upper extr. pulses, lower extr. pulses. Absent: edema - Labs and Meds Coagulation 11/13/20 Range/Units 23:26 PT 14.4 (12.2-14.9) Sec. INR 1.06 (0.87-1.13) APTT 29.2 (24.2-36.6) Sec. CBC 11/13/20 Range/Units 12:54 WBC 5.6 (4.5-11.0) K/mm3 RBC 4.42 (3.65-5.03) M/mm3 Hgb 14.9 (11.8-15.2) gm/dl Hct 43.5 (35.5-45.6) % Plt Count 138 L (140-440) K/mm3 Comprehensive Metabolic Panel 11/13/20 Range/Units 23:26 Creatinine 0.9 (0.8-1.3) mg/dL - Imaging and Cardiology EKG: report reviewed, image reviewed Echo: report reviewed (Echocardiogram reviewed (11/11/2020): LVEF is 55 to 60%. LV is normal size. LV SF is normal. Mild diastolic dysfunction. RV SF is normal. Moderate MR. Mild MVP.) - Telemetry EKG Rhythm: Atrial Fibrillation - EKG Sinus rhythms and dysrhythmias: sinus rhythm
[2020-11-15 06:12] LABS: Hematocrit 40.1 % (35.5-45.6); Hemoglobin 13.6 gm/dl (11.8-15.2); Mean Corpuscular HGB Conc 34 % (32-34); Mean Corpuscular Volume 98 fl (84-94); Platelet Count 137 K/mm3 (140-440); Red Blood Count 4.09 M/mm3 (3.65-5.03); Red Cell Distribution Width 14.2 % (13.2-15.2)
--- NOTE | 2020-11-15 08:58 | Discharge Summary ---
Providers - Providers Date of Admission: 11/11/20 09:12 Date of discharge: 11/15/20 Attending physician: AYO ZHANG MD 11/11/20 Consult to Cardiac Rehabilitation [CONS] Routine Reason For Exam: Phase 1 11/11/20 09:30 Consult to Physician [CONS] Routine Comment: Consulting Provider: MATTY YANG Physician Instructions: Reason For Exam: ICU management of A-fib RVR and ETOH Withdrawal 11/11/20 10:16 Consult to Physician [CONS] Routine Comment: Consulting Provider: CINDI LOREDO Physician Instructions: Reason For Exam: afib [facility] Reason for admission: A. fib with RVR, alcohol use, depression Condition: Stable Hospital course: History of present illness: 55-year-old male who presents through the emergency department with chief complaint of chest pain. Patient reported that he was at [facility] a few days ago for alcohol withdrawal. Patient states that he began drinking again on Friday approximately fifth of alcohol or more daily. He states that his last drink was approximately 6 hours ago. Patient reports feeling anxious and palpitations. Patient denies any cough or cold-like symptoms. No fever chills. No headache or visual disturbances. Patient describes his chest pain as a burning sensation in the middle of his chest with no associated shortness of breath. No diaphoresis, nausea or vomiting. Patient was noted on telemetry to have A. fib with RVR. Patient reports last time he was in atrial fibrillation was approximately 10 years ago. Patient reports that he has been on Cardizem 240 mg daily and metoprolol 50 mg twice daily. Patient reports medical noncompliance. Chest pain. Atrial fibrillation with RVR EtOH abuse. Depression. 11/11/2020. Patient will be admitted with the above diagnosis and placed on the chest pain protocol. Will consult cardiology for further evaluation. Trend cardiac isoenzymes and follow-up serial EKGs. Given the atrial fibrillation, we will start on IV heparin for now. Continue Cardizem drip and transition to patient's home medications of Cardizem 240 mg daily and metoprolol 50 mg twice daily. Patient will be admitted to [facility] given the Cardizem drip. Patient will be placed on [facility] protocol for the EtOH abuse. 11/12/2020. Await cardiology evaluation. Cardiac isoenzymes are negative. EKG unremarkable. Patient is back in normal sinus rhythm. Patient will be transferred to telemetry. Continue metoprolol at home medication of 240 mg Ca rdizem. Continue IV heparin for anticoagulation. Continue [facility] protocol. Ischemic evaluation per cardiology recommendations. 11/13/2020. Continue metoprolol and Cardizem for rate control. Continue IV heparin for anticoagulation. [facility] protocol. Cardiology plans for stress test this a.m. 11/14/20; continue metoprolol for rate control, and Eliquis for anticoagulation. Patient is on [facility] protocol for alcohol withdrawal and was requiring lorazepam this morning. Patient will be discharged in a.m. Patient had tremors this morning. Patient's heart rate is controlled. patient was cleared by cardiology for discharge. patient was given eliquis coupon by CM. patient was discharged with eliquis, metoprolol and Cardizem. Patient was counselled about cessation of drinking alcohol. Disposition: DC- TO HOME OR SELFCARE Final Discharge Diagnosis (Prints w/discharge instructions): A. fib with RVR. Depression. Alcohol dependence Time spent for discharge: 32 minutes - Discharge Diagnoses (1) History of depression Status: Acute (2) Alcohol withdrawal Status: Acute Qualifiers: Complication of substance-induced condition: with unspecified complication Qualified Code(s): F10.239 - Alcohol dependence with withdrawal, unspecified (3) Atrial fibrillation with RVR Status: Chronic Core Measure Documentation - Palliative Care Palliative Care/ Comfort Measures: Not Applicable - Core Measures Any of the following diagnoses?: none Exam - Physical Exam Narrative exam: Not in cardiopulmonary distress. The patient appeared well nourished and normally developed. Vital signs as documented. Head exam is unremarkable. No scleral icterus . Neck is without jugular venous distension, thyromegaly, or carotid bruits. Lungs are clear to auscultation. Cardiac exam reveals regular rate and Rhythm. Abdominal exam reveals normal bowel sounds, nontender, no organomegaly. Extremities are nonedematous and both femoral and pedal pulses are normal. [employer]: Alert and oriented 3. No focal weakness. - Constitutional Vitals: Temp Pulse Resp BP Pulse Ox 98.2 F 56 L 18 122/67 97 11/15/20 04:49 11/15/20 08:14 11/15/20 08:14 11/15/20 04:49 11/15/20 08:14 Plan Activity: no restrictions Weight Bearing Status: Full Weight Bearing Diet: regular Follow up with: VALERIA MIRANDA MD [Primary Care Provider] - 3-5 Days ASA TAFOYA MD [Staff Physician] - 14 Days Prescriptions: [id number] CD [Cardizem CD] 240 mg PO QDAY #30 cap Apixaban [Eliquis] 5 mg PO Q12HR #60 tablet Metoprolol [Lopressor TAB] 100 mg PO BID #60 tablet
[2020-11-15 09:22] VITALS: BP 123/74
[2020-11-15] MEDS: METOPROLOL TARTRATE 100 MG TAB PO SCH (09:27)
[2020-11-15] MEDS: APIXABAN 5 MG TAB PO SCH (09:27)
[2020-11-15] MEDS: LORazepam 2 MG TAB PO PRN (09:29)
[2020-11-15] MEDS ORDERED: dilTIAZem CD 240 MG CAP PO SCH (10:00)
[2020-11-15 10:52] LABS: BUN/Creatinine Ratio 13; Blood Urea Nitrogen 10 mg/dL (9-20); Calcium 9.3 mg/dL (8.4-10.2); Hemolysis Index 7
--- NOTE | 2021-03-08 02:30 | Consultation ---
DATE OF CONSULTATION: 11/12/2020 PULMONARY CRITICAL CARE CONSULTATION NOTE CONSULTING PHYSICIAN: Dr. Kike Figueroa. REASON FOR CONSULTATION: Atrial fibrillation with rapid ventricular response. CHIEF COMPLAINT AND HISTORY OF PRESENT ILLNESS: The patient is a 55-year-old male with past medical history significant for a diagnosis of atrial fibrillation, came into the Emergency Room complaining of chest pain. While undergoing treatment for alcohol withdrawal at [facility], he did mention that he had started drinking again about fifth of alcohol almost daily. He denied any fevers or chills. He was complaining of anxiety. He denied really any chest pains until about a day or so before presentation. He described it as a burning sensation in the middle of his chest. No radiation, no associated shortness of breath, no diaphoresis, no nausea and vomiting. Evaluation in the emergency room showed that the patient had atrial fibrillation with a rapid ventricular rate at the time of presentation. His pulse, I believe was as high as 176 in the emergency room. He was started on, I believe a Cardizem drip and we are asked to assist with management. Of note, the patient also admits to being on Cardizem 240 mg daily and metoprolol twice daily. He mentioned he has not been compliant with those medications. He denied any new-onset leg pain or swelling, either unilaterally or bilaterally. Denied any cough or hemoptysis. The above is as much of the history of presentation I have. PAST MEDICAL HISTORY: Atrial fibrillation. PAST SURGICAL HISTORY: Unknown. MEDICATIONS: He was on at the time I stopped by to see him were reviewed. Pertinent medications included the following: He was on aspirin 325 mg p.o. daily, diltiazem 240 mg p.o. daily, IV heparin drip was going, atrial fibrillation protocol. Diltiazem drip had been going at 5 mg per hour, lorazepam to be used IV per the alcohol withdrawal protocol depending on his CIWA score. ALLERGIES: No known drug allergies. DIET: Well built gentleman. Denies acute weight loss or gain in the preceding few weeks to months. FAMILY AND SOCIAL HISTORY: Resident of [facility] prior to coming to the hospital. He recently went back to drinking alcohol. He denied illicit drug use or abuse. Denied tobacco use. FAMILY HISTORY: Otherwise unknown. REVIEW OF SYSTEMS: No loss of consciousness. No new onset seizures. No new onset focal weakness. Denies gross hematochezia or melena. Denies gross hematuria or dysuria. No hematemesis, no hemoptysis. He has had the palpitations. He denies polydipsia, polyuria. Denies heat or cold intolerance. He admits to anxiety. Complete 13-system review of systems obtained. Pertinent positives and/or negatives as in body of history above, otherwise noncontributory. PHYSICAL EXAMINATION: VITAL SIGNS: On presentation, he was afebrile, temperature 97.9 degrees Fahrenheit, pulse 112, respiratory rate 16, blood pressure 128/85, O2 sats were 98%, inspired oxygen concentration at that time was not recorded. When I stopped by to see him, his O2 sats were 99% and that was on room air. GENERAL: Again, he is a well-built male. Normocephalic, atraumatic. Talking in full sentences with mildly increased respiratory effort at rest. HEAD, EARS, EYES, NOSE AND THROAT: Anicteric. No conjunctival erythema. Oropharynx was moist. No gross jugular venous distention, no thyromegaly. Grossly, there were no palpable lymph nodes in the supraclavicular or submandibular lymph node chains. LUNGS: Auscultation of both lung roman unremarkable. Lungs were clear bilaterally with good bilateral air movement. HEART: Sounds 1 and 2 are heard, irregular rate and rhythm without overt rubs or murmurs. ABDOMEN: Soft, full, nontender. Bowel sounds are positive. No palpable hepatosplenomegaly. Mild epigastric tenderness, I should say. EXTREMITIES: Without overt digital clubbing or cyanosis, no pedal edema. Pedal pulses are 2+ bilaterally. NEUROLOGIC: Pupils are equal, round, about 4 mm, reactive to light. Extraocular muscle movements are intact. He moves all 4 extremities spontaneously. Power is normal and symmetric. SKIN: Normal turgor in the areas examined without overt rubs or murmurs. PSYCHIATRIC: Mood and affect were somewhat anxious. He did have intact judgment and insight. LABORATORY DATA: From my review are as follows: Admission white cell count 7900, hemoglobin 16.0, hematocrit 46.6, platelet count 194. No manual differential. Serum sodium was 138, potassium 4.4, chloride 98, bicarbonate 20, BUN 17, creatinine 1.1, glucose 231. Liver function test within normal limits. Troponin within normal limits. Urinalysis was negative for nitrites and leukocyte esterase. Urine drug screen was presumptive positive for benzodiazepines. Tylenol, aspirin and alcohol levels are within normal limits. Coronavirus PCR was negative. No microbiology studies for today were reported. I do not have any radiographic studies from my report. ASSESSMENT: 1. Atrial fibrillation with a rapid ventricular response. 2. Alcohol withdrawal/delirium tremens. 3. Acute encephalopathy. 4. History of alcohol abuse. 5. Hemoconcentration. 6. Hyperglycemia. 7. Anxiety. PLAN: We will continue the transition from IV diltiazem to oral diltiazem. I will defer to the academic affairs assistant in terms of management of the acute coronary syndrome. Of note, he is also on IV anticoagulation. I will again defer to the academic affairs assistant in terms of choice of oral anticoagulant versus cardioversion. Supplemental oxygen will be provided as necessary to keep sats greater than or equal to about 90%. Aspiration precautions will be maintained. He will be continued on the CIWA protocol/alcohol withdrawal protocol, and hopefully, he does not decompensate. I do hope that he will be able to downgrade him pretty soon and get him off the IV diltiazem and transition him to a regular medical floor when he is more coherent. Counseling will be furthered about alcohol abstinence and tobacco abstinence. Otherwise, he will be placed on GI prophylaxis. Flu and pneumonia vaccination will be addressed per protocol. Thank you very much for the consult. We will follow along and make further recommendations as picture progresses/becomes clearer. At this point, he is critically ill on life-sustaining interventions including the IV diltiazem and other rate control medications, at very high risk of from cardiopulmonary system decompensation. At this time, I spent about 35-40 minutes of critical care time without overlap and excluding any procedural time that may be necessary. TID: [id number] RECEIPT: [id number] JANIYA/CAITY
== END 2020-11-15 11:45 | disposition home or self-care (01) | DRG 309 ==
LOC: ED 23:31 → CC1 11-11 09:12 → 4A 11-12 19:48
PROVIDERS: ADMIT Hospitalist; ATTEND Internal Medicine
DX: I48.0 Paroxysmal atrial fibrillation (principal); F10.239 Alcohol dependence with withdrawal, unspecified; I10 Essential (primary) hypertension; F41.9 Anxiety disorder, unspecified; F32.9 Major depressive disorder, single episode, unspecified; Z90.49 Acquired absence of other specified parts of digestive tract; Y90.9 Presence of alcohol in blood, level not specified; Z59.0 Homelessness; Z91.14 Patient's other noncompliance with medication regimen; Z20.822 Contact with and (suspected) exposure to COVID-19
CPT/HCPCS: 36415; 71046; 78452; 80048; 80053; 80307; 80320; 81001; 82565; 83735; 84484; 85014; 85018; 85025; 85027; 85049; 85520; 85610; 85730; 93005; 93017; 93306; 96360; 96361; 96375; 96376; G0378; A9502; G0480; J1644; J2060; J2785; J3411; J7030; U0003